=== PATIENT | female | born 1995 | race Caucasian/White ===

== ENCOUNTER 2021-09-13 20:39 | Emergency (ER) | payer BC, SELFPAY ==
[2021-09-13 20:42] VITALS: BP 127/80; PULSE 100; RESP 16; TEMP 36.4; O2SAT 96
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
[2021-09-13 21:12] LABS: Basophils Absolute Auto 0.1 K/mm3 (0.0-0.1); Basophils Percent Auto 0.7 % (0.2-1.2); Eosinophils Absolute Auto 0.1 K/mm3 (0-0.3); Hematocrit 38.3 % (37.0-47.0); Immature Granulocyte Absolute 0.02 K/mm3 (0.00-0.031); Immature Granulocyte Percent A 0.3 % (0-0.5); Lymphocytes Absolute Auto 2.35 K/mm3 (0.9-3.2); Lymphocytes Percent Auto 33.9 % (18.3-44.2); Mean Corpuscular HGB Conc 33.9 g/dl (32-36); Mean Corpuscular Hemoglobin 30.2 pg (26-34); Mean Corpuscular Volume 89.1 fl (80-100); Mean Platelet Volume 10.2 fl (7.4-10.4); Monocytes Absolute Auto 0.6 K/mm3 (0.1-0.6); Monocytes Percent Auto 7.9 % (2.6-8.5); Neutrophils Absolute Auto 3.8 K/mm3 (1.3-6.7); Neutrophils Percent Auto 55.2 % (45.5-73.1); Platelet Count Result 251 k/mm3 (150-375); Red Cell Distribution Width 12.9 % (11.5-14.5); White Blood Count 6.9 K/mm3 (4.5-10.0)
[2021-09-13 21:16] VITALS: BP 105/64; PULSE 90
[2021-09-13 21:17] VITALS: BP 112/72; PULSE 89
[2021-09-13 21:19] VITALS: BP 112/77; PULSE 106
[2021-09-13 21:19] LABS: Add Urine Microscopic? YES; Appearance Urine Cloudy (Clear); Bilirubin Urine Negative (Negative); Blood Urine 3+ (Negative); Color Urine Red (Yellow); Glucose Urine UA Negative (Negative); Ketones Urine Negative (Negative); Leukocyte Esterase Ur Negative LEU/UL (Negative); Nitrate Urine Negative (Negative); Protein Urine 2+ mg/dL (Negative); RBC Urine >75 /hpf (0-2); Specific Grav Ur 1.011 (1.001-1.035); Squamous Epithelial Cell Urine Few /hpf (Few); Urobilinogen Urine Negative mg/dL (<2.0); WBC Urine 0-3 /hpf
[2021-09-13 21:27] LABS: Anion Gap 8 mmol/L (8-16); Blood Urea Nitrogen 8 mg/dL (7-17); Calcium 9.6 mg/dL (8.4-10.2); Carbon Dioxide 27 mmol/L (22-30); Chloride 102 mmol/L (98-107); Estimated CRCL calculation 91 ml/min; Estimated Glomerular Filt Rate > 60; Glucose 101 mg/dL (65-110); Potassium 3.7 mmol/L (3.4-5.0); Sodium 137 mmol/L (137-145)
[2021-09-13 21:43] VITALS: BP 144/98; PULSE 86; RESP 18; O2SAT 99
== END 2021-09-13 21:45 | disposition home or self-care (01) ==
PROVIDERS: Emergency Provider Emergency Medicine; PCP Nurse Practitioner Family
DX: N93.8 Other specified abnormal uterine and vaginal bleeding (principal)
CPT/HCPCS: 36415; 80048; 81001; 81025; 85025; 99283

== ENCOUNTER 2023-02-17 14:32 | Emergency (ER) | payer BC, SELFPAY ==
[2023-02-17] VITALS (17 sets, daily range): BP systolic 94–147; BP diastolic 70–90; PULSE 76–116; RESP 16–21; TEMP 36.7; O2SAT 94–100
--- NOTE | ~2023-02-17 | XR_ITS ---
EXAMINATION: XR chest 2V Exam Date/Time: 02/17/2023 17:00 CDT HISTORY: coughing up blood, hemoptysis Comparison: None available. RESULT: Lines, tubes, and devices: None. Lungs and pleura: Moderate streaky perihilar opacities, diffuse reticulonodular opacities and cuffin g. Cardiomediastinal silhouette: Stable. Other: No acute osseous or upper abdominal finding. IMPRESSION: Pulmonary opacities may represent bronchiolitis, as can be seen with atypical infection, asthma, aspi ration, and small airways disease. Reviewed, dictated and finalized at location K. IMPRESSION: Pulmonary opacities may represent bronchiolitis, as can be seen with atypical i nfection, asthma, aspiration, and small airways disease.
--- NOTE | ~2023-02-17 | CT_ITS ---
EXAMINATION: CT abdomen pelvis w con DATE: 02/17/2023 16:49 INDICATION: Epigastric abdominal pain. Vomiting. TECHNIQUE: Computed tomography (CT) of the abdomen and pelvis was performed with 100 mL Omnipaque 350 intravenous contrast. Automated exposure control and iterative reconstruction technique were employe d. The dose-length product was 883.12 mGy-cm. COMPARISON: None. FINDINGS: The visualized portions of the lung bases demonstrate mild atelectasis. No pleural effusion . The heart size is normal. No pericardial effusion. There is a small sliding hiatal hernia. The live r, gallbladder, spleen, pancreas, adrenal glands, and kidneys are normal. There are no dilated loops of bowel. The appendix is normal. There are no pathologically enlarged lymph nodes. There is no free intraperitoneal fluid. The bones are unremarkable. IMPRESSION: 1. Small sliding hiatal hernia. Reviewed, dictated and finalized at location A.
--- NOTE | 2023-02-17 15:51 | ECG_ITS ---
Measurements Intervals [place] Rate: 85 P: 56 AK: 151 QRS: 24 QRSD: 73 T: 24 QT: 357 QTc: 426 Interpretive Statements SINUS RHYTHM NORMAL ECG NO PREVIOUS ECG AVAILABLE FOR COMPARISON Electronically Signed On 02-18-2023 7:50:43 CDT by Dalton Arroyo D.O.
--- NOTE | 2023-02-17 15:53 | ED.GENADULT ---
HPI - General Adult General Chief complaint: Unspecified Stated complaint: spitting up blood Time Seen by Provider: 02/17/23 14:44 History of Present Illness HPI narrative: Patient is a 27-year-old female with a history of migraines, asthma presenting with multiple complaints. Patient states that she has had a migraine since last . States that it feels typical of her normal migraines. States that she has been taking her Ubrelvy without relief. States that she developed a cough earlier today. States that she was initially just coughing up sputum but then it became blood-tinged. States that she is also been persistently nauseated today. She is complaining of epigastric pain as well that goes somewhat into her chest. She denies numbness or weakness, vision changes, fevers, palpitations, vomiting, diarrhea, dysuria, hematuria, leg swelling. Patient denies exogenous hormone use. Related Data Home Medications Medication Instructions Recorded Confirmed aripiprazole 5 mg tablet (Abilify) 5 mg PO HS 09/13/21 09/13/21 bupropion HCl 100 mg tablet,12 hr 100 mg PO BID 09/13/21 09/13/21 sustained-release Allergies Allergy/AdvReac Type Severity Reaction Status Date / Time hydromorphone [From Dilaudid] Allergy Anxiety Verified 02/17/23 14:39 sumatriptan [From Imitrex] Allergy Anxiety Verified 02/17/23 14:39 Review of Systems Review of Systems: All systems reviewed & are unremarkable except as noted in HPI and below Exam Narrative: GENERAL: Well-appearing, well-nourished, and in no acute distress. HEAD: Normocephalic, atraumatic. EYES: PERRLA and EOMI. ENT: Nares clear, no rhinorrhea or epistaxis. Mucous membranes moist. NECK: Supple. CHEST: Clear to auscultation. No respiratory distress. No wheezing HEART: Regular rate and rhythm. Normal peripheral pulses. ABDOMEN: Soft, + epigastric and left upper quadrant tenderness, mild lower abdominal tenderness, no guarding or rebound EXTREMITIES: Normal range of motion. No edema. SKIN: Warm, dry, no rash. NEURO: No focal deficits. Alert and oriented x3. PSYCH: Normal mood and affect. Course Vital Signs Vital signs: Vital Signs Temperature 98.0 F 02/17/23 14:47 Pulse Rate 116 H 02/17/23 14:47 Respiratory Rate 20 02/17/23 14:47 Blood Pressure 147/86 H 02/17/23 14:47 Pulse Oximetry 99 02/17/23 14:47 Temperature 98.0 F 02/17/23 14:47 Pulse Rate 84 02/17/23 19:26 Respiratory Rate 18 02/17/23 19:26 Blood Pressure 126/83 02/17/23 18:47 Pulse Oximetry 96 02/17/23 19:26 Medical Decision Making MDM Narrative Medical decision making narrative: Patient is a 27-year-old female presenting with headache, nausea, cough. Patient is slightly tachycardic and hypertensive on arrival, vitals are otherwise within normal limits. She is saturating 99% on room air. Chest x-ray shows evidence of peribronchial cuffing and perihilar opacities consistent with asthma. Blood work is unremarkable. Troponin and D-dimer are normal. EKG per my interpretation shows normal sinus rhythm, normal axis and intervals, no ST elevations or depressions. On reevaluation, the patient states that her migraine is improving. Discussed the work-up and my concern for an asthma exacerbation. Patient states that it did feel like her asthma was acting up earlier. We will do a breathing treatment and give her some prednisone. On reevaluation, patient states that she feels significantly improved. States that her headache is gone. States that her breathing feels back to normal. Feel she is safe for outpatient management. We will start her on a prednisone burst for asthma exacerbation. Advised that she follow-up closely with her PCP. Appropriate return precautions given. Patient voiced understanding and is agreeable with plan. Discharged in stable condition. Differential Diagnosis Differential Diagnosis: Asthma exacerbation, URI, pneumonia, PE, migraine Medical Rec
[2023-02-17 16:11] LABS: Appearance Urine Clear (Clear); Bilirubin Urine Negative (Negative); Blood Urine Negative (Negative); Color Urine Yellow (Yellow); Glucose Urine UA Negative (Negative); Ketones Urine Negative (Negative); Leukocyte Esterase Ur Negative LEU/UL (Negative); Nitrate Urine Negative (Negative); Protein Urine Negative (Negative); Specific Grav Ur 1.006 (1.001-1.035); Urobilinogen Urine 0.2 mg/dL (<2.0); pH Urine 5.5 (5.0-9.0)
[2023-02-17 16:16] LABS: Basophils Absolute Auto 0.1 K/mm3 (0.0-0.1); Basophils Percent Auto 0.9 % (0.2-1.2); Eosinophils Absolute Auto 0.2 K/mm3 (0-0.3); Eosinophils Percent Auto 2.1 % (0-4.4); Hematocrit 40.1 % (37.0-47.0); Hemoglobin 13.1 g/dL (12.0-15.0); Immature Granulocyte Absolute 0.05 K/mm3 (0.00-0.031); Immature Granulocyte Percent A 0.7 % (0-0.5); Lymphocytes Absolute Auto 1.73 K/mm3 (0.9-3.2); Lymphocytes Percent Auto 23.1 % (18.3-44.2); Mean Corpuscular HGB Conc 32.7 g/dl (32-36); Mean Corpuscular Hemoglobin 28.5 pg (26-34); Mean Corpuscular Volume 87.4 fl (80-100); Monocytes Absolute Auto 0.7 K/mm3 (0.1-0.6); Monocytes Percent Auto 8.8 % (2.6-8.5); Neutrophils Absolute Auto 4.8 K/mm3 (1.3-6.7); Neutrophils Percent Auto 64.4 % (45.5-73.1); Platelet Count Result 258 k/mm3 (150-375); Red Blood Count 4.59 M/mm3 (4.2-5.4); White Blood Count 7.5 K/mm3 (4.5-10.0)
[2023-02-17 16:20] LABS: Add Urine Microscopic? NO
[2023-02-17 16:23] LABS: Pregnancy On Board Control Positive; Urine Pregnancy Test Negative
[2023-02-17] MEDS: SODIUM CHLORIDE 0.9% IV 1,000 ML 999 ML IV CONT ×2 (16:25→18:06)
[2023-02-17] MEDS: PROCHLORPERAZINE EDISYLATE 10 MG/2 ML VIAL IV PUSH (16:25)
[2023-02-17 16:26] LABS: Lipase 107 U/L (23-300)
[2023-02-17 16:27] LABS: Alanine Aminotransferase 25 U/L (6-35); Albumin Level 4.4 g/dL (3.5-5.1); Alkaline Phosphatase 79 U/L (38-126); Anion Gap 7 mmol/L (8-16); Aspartate Amino Transferase 23 U/L (14-36); Bilirubin,Total 0.3 mg/dL (0.2-1.3); Blood Urea Nitrogen 9 mg/dL (7-17); Calcium 9.3 mg/dL (8.4-10.2); Carbon Dioxide 26 mmol/L (22-30); Chloride 105 mmol/L (98-107); Estimated CRCL calculation 132 ml/min; Estimated Glomerular Filt Rate > 60; Glucose 95 mg/dL (65-110); Sodium 138 mmol/L (137-145)
[2023-02-17 16:33] LABS: D Dimer 0.28 ug/mL (<0.48)
[2023-02-17] MEDS: diphenhydrAMINE HCl INJ 50 MG/ML VIAL 25 MG IV PUSH (16:34)
[2023-02-17 16:38] LABS: Troponin I < 0.012 ng/mL (0.000-0.034)
[2023-02-17 16:44] LABS: Influenza A QL RT-PCR Negative (Negative); Influenza B QL RT-PCR Negative (Negative); SARS-CoV-2 RNA PCR Negative (Negative)
[2023-02-17] MEDS: KETOROLAC 15 MG/ML VIAL (*BKC) IV PUSH (16:52)
[2023-02-17] MEDS: LEVALBUTEROL NEB 1.25 MG/3 ML INHALATION (18:01)
[2023-02-17] MEDS: IPRATROPIUM BR 0.02% INH SOLN 0.5 MG/2.5 ML VIAL INHALATION (18:01)
[2023-02-17] MEDS: predniSONE 20 MG TABLET 40 MG PO (18:06)
[2023-02-17 20:02] LABS: Troponin I < 0.012 ng/mL (0.000-0.034)
== END 2023-02-17 20:01 | disposition home or self-care (01) ==
PROVIDERS: Emergency Provider Emergency Medicine; PCP Nurse Practitioner Family
DX: G43.909 Migraine, unspecified, not intractable, without status migrainosus (principal); J45.901 Unspecified asthma with (acute) exacerbation; Z20.822 Contact with and (suspected) exposure to COVID-19; K44.9 Diaphragmatic hernia without obstruction or gangrene
CPT/HCPCS: 36415; 71046; 74177; 80053; 81003; 81025; 83690; 84484; 85025; 85380; 87636; 93005; 94640; 96361; 96374; 96375; 99284; J0780; J1200; J1885; J7030; J7512; Q9967

== ENCOUNTER → 2023-07-17 10:01 | Outpatient (CLI) | payer BC, SELFPAY ==
--- NOTE | ~2023-07-17 | US_ITS ---
EXAMINATION: US OB limited DATE: 07/17/2023 10:29 INDICATION: abdominal wall defect. TECHNIQUE: Real-time transabdominal ultrasound of the pelvis was performed. COMPARISON: None. FINDINGS: There is an intrauterine gestational sac. There is a single fetus in breech presentation. The c rown rump length measures 8.0 cm, which correlates with an estimated gestational age of 14 weeks and 0 day(s) (+/-) 1 week(s) and 2 day(s) with estimated date of delivery of 01/15/2024. heart motio n is identified measuring 151 beats per minute (bpm) by M-mode Doppler. The placenta is anterior. The amniotic fluid volume is subjectively normal. The ovaries are not visualized. There is no free fluid in the pelvis. IMPRESSION: 1. Normal abdominal wall. 2. Single living intrauterine gestation in breech presentation. Reviewed, dictated and finalized at location E.
== END ==
PROVIDERS: PCP Obstetrics & Gynecology; Visit Provider Obstetrics & Gynecology
DX: O28.3 Abnormal ultrasonic finding on antenatal screening of mother (principal); Z3A.00 Weeks of gestation of pregnancy not specified
CPT/HCPCS: 76815

== ENCOUNTER → 2023-08-27 15:33 | Outpatient (CLI) | payer BC, SELFPAY ==
--- NOTE | ~2023-08-27 | US_ITS ---
EXAMINATION: US OB /maternal detail DATE: 08/27/2023 16:27 INDICATION: anatomic survey. TECHNIQUE: Real-time ultrasound of the pelvis was performed. COMPARISON: Ultrasound 07/17/2023 FINDINGS: There is a single living fetus in vertex presentation. The placenta is anterior. heart rate is 137 beats per minute (bpm). The amniotic fluid volume is subjectively normal. The cervical length is 3.9 cm on transabdominal images, which is normal. The following biometric data were obtained: Biparietal diameter (BPD): 4.5 cm; head circumference (HC): 17.2 cm; abdominal circumference (AC): 14 .1 cm; femur length (FL): 3.2 cm. These measurements are concordant. Estimated weight is 305 g +/- 46 g, which correlates with the 34th percentile when 01/15/24 is u sed as estimated date of delivery. As single measurements, these parameters are each equal to the following estimated gestational ages: BPD: 19 weeks 4 days. HC: 19 weeks 5 days. AC: 19 weeks 3 days. FL: 19 weeks 6 days. estimated gestational age based solely on measurements from this exam is 19 weeks 5 days +/- 1 weeks 3 days. The cerebral ventricles, cerebellum, cisterna magna, nuchal fold, and visualized portions of the spin e are normal. The heart is normal. The lip is not well visualized. The stomach is not well visu alized. The diaphragm, kidneys, and bladder are normal. There are two umbilical arteries to yield a 3 -vessel cord. The cord insertion is normal. IMPRESSION: 1. Single living fetus in vertex presentation. 2. Estimated weight is 305 g +/- 46 g, which correlates with the 34th percentile when 01/15/24 is used as estimated date of delivery. 3. stomach and lip not well visualized. Otherwise normal anatomic survey. Reviewed, dictated and finalized at location E. HING MACHINE OPERATOR IMPRESSION: 1. Single living fetus in vertex presentation. 2. Estimated weight is 305 g +/- 46 g, which correlates with the 34th pe rcentile when 01/15/24 is used as estimated date of delivery. 3. stomach and lip not well visualized. Otherwise normal anatomic s urvey.
== END ==
PROVIDERS: PCP Obstetrics & Gynecology; Visit Provider Obstetrics & Gynecology
DX: Z36.9 Encounter for antenatal screening, unspecified (principal); Z3A.19 19 weeks gestation of pregnancy
CPT/HCPCS: 76805

== ENCOUNTER → 2023-09-25 10:45 | Outpatient (CLI) | payer BC, SELFPAY ==
--- NOTE | ~2023-09-25 | US_ITS ---
EXAMINATION: US OB limited DATE: 09/25/2023 11:56 INDICATION: Incomplete second trimester anatomic survey TECHNIQUE: Real-time ultrasound of the pelvis was performed. The interpreting radiologist was not pre sent for the study. COMPARISON: 08/27/2023 FINDINGS: There is a single living fetus in vertex presentation. The placenta is anterior and 8.7 cm from the internal cervical os. cardiac activity and movement are noted. heart rate is 132 beats per minute (bpm). The amniotic fluid index is subjectively normal. The stomach michi ears normal. The lip is not well evaluated due to positioning. IMPRESSION: 1. Single living fetus in vertex presentation. 2. Normal-appearing stomach. 3. lips/nose not well demonstrated due to position. Reviewed, dictated and finalized at location B. WASHER MACHINE
== END ==
PROVIDERS: PCP Advanced Practice Midwife; Visit Provider Obstetrics & Gynecology
DX: Z36.9 Encounter for antenatal screening, unspecified (principal); Z3A.00 Weeks of gestation of pregnancy not specified
CPT/HCPCS: 76815

== ENCOUNTER → 2023-10-16 08:35 | Outpatient (CLI) | payer BC, SELFPAY ==
--- NOTE | ~2023-10-16 | US_ITS ---
EXAMINATION: US OB follow up DATE: 10/16/2023 09:21 INDICATION: screening. Obesity complicating . TECHNIQUE: Real-time ultrasound of the pelvis was performed. COMPARISON: Ultrasound 09/25/2023 FINDINGS: There is a single living fetus in vertex presentation. The placenta is anterior. heart rate is 150 beats per minute (bpm). The lip is normal. The amniotic fluid volume is subjectively avel l. The following biometric data were obtained: Biparietal diameter (BPD): 7.0 cm; head circumference (HC): 25.0 cm; abdominal circumference (AC): 22 .6 cm; femur length (FL): 4.9 cm. These measurements are discordant with low FL/BPD. Estimated weight is 1008 g +/- 151 g, which correlates with the 36th percentile when 01/15/24 is used as estimated date of delivery. As single measurements, these parameters are each equal to the following estimated gestational ages: BPD: 27 weeks 1 days. HC: 27 weeks 1 days. AC: 27 weeks 0 days. FL: 26 weeks 5 days. estimated gestational age based solely on measurements from this exam is 27 weeks 2 days +/- 1 weeks 6 days. IMPRESSION: 1. Single living fetus in vertex presentation. 2. Estimated weight is 1008 g +/- 151 g, which correlates with the 36th percentile when 4 is used as estimated date of delivery. 3. Discordant biometrics with low FL/BPD. 4. Normal lip. Reviewed, dictated and finalized at location A. OR ADMINISTRATIVE ASSISTANT IMPRESSION: 1. Single living fetus in vertex presentation. 2. Estimated weight is 1008 g +/- 151 g, which correlates with the 36th percentile when 01/15/24 is used as estimated date of delivery. 3. Discordant biometrics with low FL/BPD. 4. Normal lip.
== END ==
PROVIDERS: PCP Advanced Practice Midwife; Visit Provider Obstetrics & Gynecology
DX: O24.419 Gestational diabetes mellitus in pregnancy, unspecified control (principal); O99.210 Obesity complicating pregnancy, unspecified trimester; Z3A.00 Weeks of gestation of pregnancy not specified; Z36.9 Encounter for antenatal screening, unspecified
CPT/HCPCS: 76816

== ENCOUNTER 2025-02-14 01:05 | Day surgery (SDC) | payer BC, SELFPAY ==
[2025-02-01 14:26] VITALS: BMI 32.7
--- OUTSIDE RECORDS SUMMARY | 2025-02-14 01:08 | XMS_ITS | Data Portability ---
Author Organization [facility] Address [address] [place] [address] Assessment Encounter Date Assessment Date Assessment LastModified by Organization Details LastModified Time 05/21/2022 05/21/2022 Annual gynecological exam performed. Patient will come back in a year unless there are new symptoms. Not available 05/21/2022 15:43:19 Plan of Treatment Reminders Order Date Submit Date Provider Last Modified By Organization Details Last Modified Time Details Appointments None recorded. Lab dhea-sulfat e, serum 2021 [facility] (Lab), [address] [place], [address], 17:17:50 hormone panel, serum or plasma 2021 [facility] (Lab), [address] [place], [address], 17:17:52 progesteron e, serum 2021 [facility] (Lab), [address] [place], [address], 17:17:51 prolactin, serum 2021 [facility] (Lab), [address] [place], [address], 17:17:51 shbg (sex hormone-bin ding globulin), serum 2021 [facility] (Lab), [address], [place], [address], 17:17:52 TSH, serum or plasma 2021 [facility] (Lab), [address], [place], [address], 17:17:52 testosteron e free/testos terone total, ratio, serum 2021 [facility] (Lab), [address], [place], [address], 17:17:53 estradiol, serum 2021 [facility] (Lab), [address] [place], [address], 17:17:50 17-hydroxyp rogesterone , QN, serum 2021 [facility] (Lab), [address] [place], [address], 17:17:53 Referral None recorded. Procedures None recorded. Surgeries None recorded. Imaging None recorded. Medication Orders Slynd 4 mg (28) tablet 2021 [id number], [address], [place], [id number], 15:50:10 Patient TargetsNo targets recorded. Patient InstructionsNo instructions recorded. Reason for Referral None Reported. Results Created Date Observation Date Name Description Value Unit Range Abnormal Flag Note LastModifiedBy Organization Detail LastModifiedTime 09/10/20 21 09/10/2021 CBC W/DIF F WBC 7.1 10'3/ uL 3.6-10 .2 Not Available [facility] (Lab) [address], [place], [address], 09/17/2021 16:23:39 09/10/20 21 09/10/2021 CBC W/DIF F RBC 4.50 10'6/ uL (based on docume nted legal sex) 4.10-5 .30 Not Available [facility] (Lab) [address], [place], [address], 09/17/2021 16:23:39 09/10/20 21 09/10/2021 CBC W/DIF F HGB 13.4 g/dL (based on docume nted legal sex) 11.9-1 5.8 Not Available [facility] (Lab) [address] , [place], [address], 09/17/2021 16:23:39 09/10/20 21 09/10/2021 CBC W/DIF F HCT 40.1 % (based on docume nted legal sex) 37.4-4 8.3 Not Available [facility] (Lab) [address] , [place], [address], 09/17/2021 16:23:39 09/10/20 21 09/10/2021 CBC W/DIF F MCV 89.0 fL 82.0-9 9.0 Not Available [facility] (Lab) [address], [place], [address], 09/17/2021 16:23:39 09/10/20 21 09/10/2021 CBC W/DIF F MCH 30.0 pg 27.0-3 3.0 Not Available [facility] (Lab) [address] , [place], [address], 09/17/2021 16:23:39 09/10/20 21 09/10/2021 CBC W/DIF F MCHC 33.0 g/dL 32.0-3 6.0 Not Available [facility] (Lab) [address] , [place], [address], 09/17/2021 16:23:39 09/10/20 21 09/10/2021 CBC W/DIF F RDW 13.0 % 11.0-1 5.0 Not Available [facility] (Lab) [address], [place], [address], 09/17/2021 16:23:39 09/10/20 21 09/10/2021 CBC W/DIF F plt 266 10'3/ uL 150-45 0 Not Available [facility] (Lab) [address], [place], [address], 09/17/2021 16:23:39 09/10/20 21 09/10/2021 CBC W/DIF F MPV 10.9 fL 9.8-12 .7 Not Available [facility] (Lab) [address], [place], [address], 09/17/2021 16:23:39 09/10/20 21 09/10/2021 CBC W/DIF F NRBC's 0.00 % 0 Not Available [facility] (Lab) [address], [place], [address], 09/17/2021 16:23:39 09/10/20 21 09/10/2021 CBC W/DIF F absolute NRBCs 0.0 10'3/ uL 0 Not Available [facility] (Lab) [address], [place], [address], 09/17/2021 16:23:39 09/10/20 21 09/10/2021 CBC W/DIF F neutrophils 64.0 % 37.0-7 2.0 Not Available [facility] (Lab) [address], [place], [address], 09/17/2021 16:23:39 09/10/20 21 09/10/2021 CBC W/DIF F lymphocytes 25.0 % 16.0-4 8.0 Not Available [facility] (Lab) [address], [place], [address], 09/17/2021 16:23:39 09/10/20 21 09/10/2021 CBC W/DIF F monocytes 8.0 % 4.0-14 .0 Not Available [facility] (Lab) [address], [place], [address], 09/17/2021 16:23:39 09/10/20 21 09/10/2021 CBC W/DIF F eosinophils 2.0 % 0.0-9. 0 Not Available [facility] (Lab) [address], [place], [address], 09/17/2021 16:23:39 09/10/20 21 09/10/2021 CBC W/DIF F basophils 1.0 % 0.0-2. 0 Not Available [facility] (Lab) [address], [place], [address], 09/17/2021 16:23:39 09/10/20 21 09/10/2021 CBC W/DIF F immature granulocytes 0.0 % no define d refere nce range Not Available [facility] (Lab) [address], [place], [address], 09/17/2021 16:23:39 09/10/20 21 09/10/2021 CBC W/DIF F absolute neutrophils 4.6 10'3/ uL 1.1-6. 0 Not Available [facility] (Lab) [address], [place], [address], 09/17/2021 16:23:39 09/10/20 21 09/10/2021 CBC W/DIF F absolute lymphocytes 1.7 10'3/ uL 0.7-3. 4 Not Available [facility] (Lab) [address], [place], [address], 09/17/2021 16:23:39 09/10/20 21 09/10/2021 CBC W/DIF F absolute monocytes 0.5 10'3/ uL 0.3-1. 0 Not Available [facility] (Lab) [address] [place], [address], 09/17/2021 16:23:39 09/10/20 21 09/10/2021 CBC W/DIF F absolute eosinophils 0.1 10'3/ uL 0.0-0. 6 Not Available [facility] (Lab) [address], [place], [address], 09/17/2021 16:23:39 09/10/20 21 09/10/2021 CBC W/DIF F absolute basophils 0.0 10'3/ uL 0.0-0. 1 Not Available [facility] (Lab) [address], [place], [address], 09/17/2021 16:23:39 09/10/20 21 09/10/2021 CBC W/DIF F absolute immature granulocytes 0.00 10'3/ uL 0.00-0 .10 09/11 12:34 AM: P indic ates parti al resul ts on a panel have been relea sed. Addit ional resul ts will follo w. 09/11 12:34 AM: This resul t has been final verif ied. No addit ional or richards ed resul ts are expec nickolas. Not Available [facility] (Lab) [address], [place], [address], 09/17/2021 16:23:39 09/10/20 21 09/10/2021 URIC ACID uric acid 6.5 mg/dL 2.3-6. 6 Not Available [facility] (Lab) [address], [place], [address], 09/17/2021 16:23:39 09/10/20 21 09/10/2021 CMP(C OMPRE HENSI VE METAB OLIC PANEL ) sodium 141 mmol/ L 133-14 6 Not Available [facility] (Lab) [address], [place], [address], 09/17/2021 16:23:40 09/10/20 21 09/10/2021 CMP(C OMPRE HENSI VE METAB OLIC PANEL ) potassium 4.1 mmol/ L 3.5-5. 1 Not Available [facility] (Lab) [address], [place], [address], 09/17/2021 16:23:40 09/10/20 21 09/10/2021 CMP(C OMPRE HENSI VE METAB OLIC PANEL ) chloride 104 mmol/ L 98-107 Not Available [facility] (Lab) [address], [place], [address], 09/17/2021 16:23:40 09/10/20 21 09/10/2021 CMP(C OMPRE HENSI VE METAB OLIC PANEL ) carbon dioxide 27 mmol/ L 21-31 Not Available [facility] (Lab) [address], [place], [address], 09/17/2021 16:23:40 09/10/20 21 09/10/2021 CMP(C OMPRE HENSI VE METAB OLIC PANEL ) anion gap 10 mmol/ L 4-13 Not Available [facility] (Lab) [address], [place], [address], 09/17/2021 16:23:40 09/10/20 21 09/10/2021 CMP(C OMPRE HENSI VE METAB OLIC PANEL ) blood urea nitrogen 10 mg/dL 7-25 Not Available [facility] (Lab) [address] [place], [address], 09/17/2021 16:23:40 09/10/20 21 09/10/2021 CMP(C OMPRE HENSI VE METAB OLIC PANEL ) creatinine 0.85 mg/dL 0.60-1 .30 Not Available [facility] (Lab) [address], [place], [address], 09/17/2021 16:23:40 09/10/20 21 09/10/2021 CMP(C OMPRE HENSI VE METAB OLIC PANEL ) egfrcr (CKD-epi 2020) >90 mL/mi n/1.7 3_m2 >=60 Not Available [facility] (Lab) [address], [place], [address], 09/17/2021 16:23:40 09/10/20 21 09/10/2021 CMP(C OMPRE HENSI VE METAB OLIC PANEL ) calcium 10.0 mg/dL 8.3-10 .5 Not Available [facility] (Lab) [address], [place], [address], 09/17/2021 16:23:40 09/10/20 21 09/10/2021 CMP(C OMPRE HENSI VE METAB OLIC PANEL ) glucose 91 mg/dL 70-100 Not Available [facility] (Lab) [address], [place], [address], 09/17/2021 16:23:40 09/10/20 21 09/10/2021 CMP(C OMPRE HENSI VE METAB OLIC PANEL ) protein, total 7.3 g/dL 6.4-8. 3 Not Available [facility] (Lab) [address], [place], [address], 09/17/2021 16:23:40 09/10/20 21 09/10/2021 CMP(C OMPRE HENSI VE METAB OLIC PANEL ) albumin 4.9 g/dL 3.5-5. 0 Not Available [facility] (Lab) [address] [place], [address], 09/17/2021 16:23:40 09/10/20 21 09/10/2021 CMP(C OMPRE HENSI VE METAB OLIC PANEL ) ALT 14 units /L 9-43 Not Available [facility] (Lab) [address], [place], [address], 09/17/2021 16:23:40 09/10/20 21 09/10/2021 CMP(C OMPRE HENSI VE METAB OLIC PANEL ) alkaline phosphatase 64 units /L 34-104 Not Available [facility] (Lab) [address], [place], [address], 09/17/2021 16:23:40 09/10/20 21 09/10/2021 CMP(C OMPRE HENSI VE METAB OLIC PANEL ) AST 15 units /L 13-39 Not Available [facility] (Lab) [address], [place], [address], 09/17/2021 16:23:40 09/10/20 21 09/10/2021 CMP(C OMPRE HENSI VE METAB OLIC PANEL ) bilirubin, total 0.5 mg/dL 0.2-1. 2 Not Available [facility] (Lab) [address], [place], [address], 09/17/2021 16:23:40 09/10/20 21 09/10/2021 FREE T3 T3, free 4.0 pg/mL 2.5-3. 9 high Not Available [facility] (Lab) [address] [place], [address], 09/17/2021 16:23:40 09/10/20 21 09/10/2021 DHEA SULFA TE DHEA-sulfate 388 ug/dL Femal e Range s Age(y ) Range (ug/d L) 10-15 34-28 0 15-20 65-36 8 20-25 148-4 07 25-35 99-34 0 35-45 61-33 7 45-55 35-25 6 55-65 19-20 5 65-75 9-246 > 75 12-15 4 Not Available [facility] (Lab) [address], [place], [address], 09/17/2021 16:23:41 09/10/20 21 09/10/2021 TSH, REFLE X FREE T4 TSH 1.28 uIU/m L 0.30-5 .33 Not Available [facility] (Lab) [address], [place], [address], 09/17/2021 16:23:41 09/10/20 21 09/10/2021 HUMAN SEX HORMO NE ANNIE NG GLOBU MILADIS sex hormone binding globulin 60.3 nmole s/L 18.2-1 35.5 Not Available [facility] (Lab) [address], [place], [address], 09/17/2021 16:23:42 09/10/20 21 09/10/2021 PROGE STERO NE progesterone 0.20 NG/mL This assay was perfo rmed using [employer] ratio n reage nts and test kits. Value s obtai janna with other assay metho ds or kits canno t be used inter [facility] . Femal e Proge stero ne Range s: Folli cular phase 0.06- 0.89 ng/mL Ovula tion phase 0.12- 12.00 ng/mL Lutea l phase 1.83- 23.90 ng/mL Postm enopa usal< 0.05- 0.13 ng/mL Healt hy Pregn ant Women 1st Trime ster1 1.0-4 4.30 2nd Trime ster2 5.40- 83.30 3rd Trime ster5 8.70- 214.0 0 Not Available [facility] (Lab) [address], [place], [address], 09/17/2021 16:23:42 09/10/20 21 09/10/2021 PROLA CTIN prolactin, total 9.04 NG/mL 4.79-2 3.30 This assay was perfo rmed using [employer] ratio n reage nts and test kits. Value s obtai janna with other assay metho ds or kits canno t be used inter [facility] . Not Available [facility] (Lab) [address], [place], [address], 09/17/2021 16:23:42 09/10/20 21 09/10/2021 T4 FREE T4, free 0.72 NG/dL 0.60-1 .40 Not Available [facility] (Lab) [address] [place], [address], 09/17/2021 16:23:43 09/10/20 21 09/10/2021 LH (LUTE NIZIN G HORMO NE) LH 9.4 mIU/m L This assay was perfo rmed using [employer] ratio n reage nts and test kits. Value s obtai janna with other assay metho ds or kits canno t be used inter [facility] . Femal es Mid-F ollic ular: 2.4-1 2.6 mIU/m L Mid-C ycle: 14.0- 95.6 mIU/m L Mid-L uteal : 1.0-1 1.4 mIU/m L Postm enopa use: 7.7-5 8.5 mIU/m L Not Available [facility] (Lab) [address], [place], [address], 09/17/2021 16:23:43 09/10/20 21 09/10/2021 FSH FSH 10.4 mIU/m L This assay was perfo rmed using [employer] ratio n reage nts and test kits. Value s obtai janna with other assay metho ds or kits canno t be used [facility] . Femal es Folli cular : 3.5-1 2.5 mIU/m L Ovula tion: 4.7-2 1.5 mIU/m L Lutea l: 1.7-7 .7 mIU/m L Postm enopa use: 25.8- 134.8 mIU/m L Not Available [facility] (Lab) [address], [place], [address], 09/17/2021 16:23:44 09/10/20 21 09/10/2021 ESTRA DIOL estradiol <5.0 pg/mL This assay was perfo rmed using [employer] ratio n reage nts and test kits. Value s obtai janna with other assay metho ds or kits canno t be used [facility] . Femal e Estra diol Range s: Folli cular phase 12.4- 233 pg/mL Ovula tion phase 41.0- 398 pg/mL Lutea l phase 22.3- 341 pg/mL Postm enopa usal< 5-138 pg/mL Healt hy Pregn ant Women 1st Trime ster1 54-32 43 pg/mL 2nd Trime ster1 561-2 1280 pg/mL 3rd Trime ster8 525-> 48059 pg/mL Not Available [facility] (Lab) [address], [place], [address], 09/17/2021 16:23:44 09/10/20 21 09/10/2021 HEMOG LOBIN A1C hemoglobin A1C 5.1 % 0-5.6 The Ameri can Diabe tony [employer] iatio n recom mends that a prima ry goal of thera py shoul d be a HBA1C of < 7% and that physi cians shoul d reeva luate the treat ment regim en in patie nts with HBA1C value s consi stent ly > 8%. <5.7% Neris l 5.7 - 6.4% Incre ased risk for diabe tony >=6.5 % Diagn ostic of diabe tony <7.0% Goal of thera py >8.0% Actio n sugge sted Not Available [facility] (Lab) [address], [place], [address], 09/17/2021 16:23:45 09/10/20 21 09/10/2021 TESTO STERO NE, FREE( DIALY SIS) AND TOTAL (LC/M S/MS) testosterone , total 17 NG/dL 2-45 For addit ional infor mario lynn e refer to http: //[facility].que stdia gnost ics.c om/fa q/Tot alTes liana Velasquez [employer] [facility] (This link is being provi ded for infor jose jo/ educa marques l purpo ses only. ) This test was jennifer castellanos and its reji tical perfo rmanc e aquilino cteri stics have been deter mined by [facility]. It has not been clear ed or appro leana by the FDA. This assay has been valid ated pursu ant to the CLIA regul ation s and is used for clini bro purpo ses. Not Available [facility] (Lab) [address] [place], [address], 09/17/2021 16:23:45 09/10/20 21 09/10/2021 TESTO STERO NE, FREE( DIALY SIS) AND TOTAL (LC/M S/MS) testosterone , free 1.6 pg/mL 0.1-6. 4 This test was devel oped and its reji tical perfo rmanc e aquilino cteri stics have been deter mined by [facility]. It has not been clear ed or appro leana by the FDA. This assay has been valid ated pursu ant to the CLIA regul ation s and is used for clini bro purpo ses. Perfo rming Organ izati on Infor matio n: Site ID: [id number] Name: [facility]-Armaan kevan Daveen lydia Addre ss: [id number] [place] [address] Direc tor: Lin bolivar M.D. Not Available [facility] (Lab) [address], [place], [address], 09/17/2021 16:23:45 09/10/20 21 09/10/2021 17-OH PROGE STERO NE 17-hydroxypr ogesterone, lc/MS/MS 16 NG/dL Adult Femal e Refer ence Range s for 17-Hy droxy proge stero ne: Pre-M enopa usal Mid Folli cular : 23-10 2 ng/dL Pre-M enopa usal Surge : 67-34 9 ng/dL Pre-M enopa usal Mid Lutea l: 139-4 31 ng/dL Postm enopa usal Phase : < or = 45 ng/dL Pregn jeremiah: First Trime ster: 78-45 7 ng/dL Secon d Trime ster: 90-35 7 ng/dL Third Trime ster: 144-5 78 ng/dL This test was devel oped and its reji tical perfo rmanc e aquilino cteri stics have been deter mined by [facility] [place] [facility] . It has not been clear ed or appro leana by FDA. This assay has been valid ated pursu ant to the CLIA regul ation s and is used for clini bro purpo ses. Perfo rming Organ izati on Infor matio n: Site ID: [id number] Name: [facility]/Armaan hols [facility] [place] , Addre ss: [id number] [place] [address] Direc tor: Linda pink MD,Ph D,KRISSY Not Available [facility] (Lab) [address], [place], [address], 09/17/2021 16:23:46 11/07/19 22 11/07/2021 DHEA SULFA TE DHEA-sulfate 275 ug/dL Femal e Range s Age(y ) Range (ug/d L) 10-15 34-28 0 15-20 65-36 8 20-25 148-4 07 25-35 99-34 0 35-45 61-33 7 45-55 35-25 6 55-65 19-20 5 65-75 9-246 > 75 12-15 4 Not Available [facility] (Lab) [address], [place], [address], 11/11/2021 17:17:50 11/07/19 22 11/07/2021 ESTRA DIOL estradiol 44.9 pg/mL This assay was perfo rmed using [employer] ratio n reage nts and test kits. Value s obtai janna with other assay metho ds or kits canno t be used inter [facility] . Femal e Estra diol Range s: Folli cular phase 12.4- 233 pg/mL Ovula tion phase 41.0- 398 pg/mL Lutea l phase 22.3- 341 pg/mL Postm enopa usal< 5-138 pg/mL Healt hy Pregn ant Women 1st Trime ster1 54-32 43 pg/mL 2nd Trime ster1 561-2 1280 pg/mL 3rd Trime ster8 525-> 47223 pg/mL Not Available [facility] (Lab) [address], [place], [address], 11/11/2021 17:17:50 11/07/19 22 11/07/2021 PROGE STERO NE progesterone 0.25 NG/mL This assay was perfo rmed using [employer] [facility] ratio n reage nts and test kits. Value s obtai janna with other assay metho ds or kits canno t be used [facility] . Femal e Proge stero ne Range s: Folli cular phase 0.06- 0.89 ng/mL Ovula tion phase 0.12- 12.00 ng/mL Lutea l phase 1.83- 23.90 ng/mL Postm enopa usal< 0.05- 0.13 ng/mL Healt hy Pregn ant Women 1st Trime ster1 1.0-4 4.30 2nd Trime ster2 5.40- 83.30 3rd Trime ster5 8.70- 214.0 0 Not Available [facility] (Lab) [address], [place], [address], 11/11/2021 17:17:51 11/07/19 22 11/07/2021 PROLA CTIN prolactin, total 4.12 NG/mL 4.79-2 3.30 low This assay was perfo rmed using [employer] ratio n reage nts and test kits. Value s obtai janna with other assay metho ds or kits canno t be used [facility] . Not Available [facility] (Lab) [address] [place], [address], 11/11/2021 17:17:51 11/07/19 22 11/07/2021 FSH, LH, ESTRA DIOL estradiol 44.9 pg/mL This assay was perfo rmed using [employer] [facility] ratio n reage nts and test kits. Value s obtai janna with other assay metho ds or kits canno t be used [facility] . Femal e Estra diol Range s: Folli cular phase 12.4- 233 pg/mL Ovula tion phase 41.0- 398 pg/mL Lutea l phase 22.3- 341 pg/mL Postm enopa usal< 5-138 pg/mL Healt hy Pregn ant Women 1st Trime ster1 54-32 43 pg/mL 2nd Trime ster1 561-2 1280 pg/mL 3rd Trime ster8 525-> 13596 pg/mL This assay was perfo rmed using [facility] [employer] [facility] [facility] [employer] ratio n reage nts and test kits. Value s obtai janna with other assay metho ds or kits canno t be used [facility] . Femal e Estra diol Range s: Folli cular phase 12.4- 233 pg/mL Ovula tion phase 41.0- 398 pg/mL Lutea l phase 22.3- 341 pg/mL Postm enopa usal< 5-138 pg/mL Healt hy Pregn ant Women 1st Trime ster1 54-32 43 pg/mL 2nd Trime ster1 561-2 1280 pg/mL 3rd Trime ster8 525-> 86783 pg/mL Not Available [facility] (Lab) [address] [place], [address], 11/11/2021 17:17:51 11/07/19 22 11/07/2021 FSH, LH, ESTRA DIOL FSH 10.6 mIU/m L This assay was perfo rmed using [facility] [employer] [facility] [facility] [employer] ratio n reage nts and test kits. Value s obtai janna with other assay metho ds or kits canno t be used [facility] . Femal es Folli cular : 3.5-1 2.5 mIU/m L Ovula tion: 4.7-2 1.5 mIU/m L Lutea l: 1.7-7 .7 mIU/m L Postm enopa use: 25.8- 134.8 mIU/m L Not Available [facility] (Lab) [address] [place], [address], 11/11/2021 17:17:51 11/07/19 22 11/07/2021 FSH, LH, ESTRA DIOL LH 8.6 mIU/m L This assay was perfo rmed using [employer] [facility] ratio n reage nts and test kits. Value s obtai janna with other assay metho ds or kits canno t be used inter [facility] . Femal es Mid-F ollic ular: 2.4-1 2.6 mIU/m L Mid-C ycle: 14.0- 95.6 mIU/m L Mid-L uteal : 1.0-1 1.4 mIU/m L Postm enopa use: 7.7-5 8.5 mIU/m L Not Available [facility] (Lab) [address], [place], [address], 11/11/2021 17:17:51 11/07/19 22 11/07/2021 TSH, REFLE X FREE T4 TSH 1.12 uIU/m L 0.30-5 .33 Not Available [facility] (Lab) [address] [place], [address], 11/11/2021 17:17:52 11/07/19 22 11/07/2021 HUMAN SEX HORMO NE ANNIE NG GLOBU MILADIS sex hormone binding globulin 96.1 nmole s/L 18.2-1 35.5 Not Available [facility] (Lab) [address] [place], [address], 11/11/2021 17:17:52 11/07/19 22 11/07/2021 17-OH PROGE STERO NE 17-hydroxypr ogesterone, lc/MS/MS 29 NG/dL Adult Femal e Refer ence Range s for 17-Hy droxy proge stero ne: Pre-M enopa usal Mid Folli cular : 23-10 2 ng/dL Pre-M enopa usal Surge : 67-34 9 ng/dL Pre-M enopa usal Mid Lutea l: 139-4 31 ng/dL Postm enopa usal Phase : < or = 45 ng/dL Pregn jeremiah: First Trime ster: 78-45 7 ng/dL Secon d Trime ster: 90-35 7 ng/dL Third Trime ster: 144-5 78 ng/dL This test was devel oped and its reji tical perfo rmanc e aquilino cteri stics have been deter mined by [facility] [place] . It has not been clear ed or appro leana by FDA. This assay has been valid ated pursu ant to the CLIA regul ation s and is used for clini bro purpo ses. Perfo rming Organ izati on Norbertor aracelijuanjo seo: Site ID: [id number] Name: [facility]/Armaan kevan [facility] [place] , Addre ss: [id number] [place] [id number] Direc tor: Linda pink MD,Ph D,KRISSY Not Available [facility] (Lab) [address] [place], [address], 11/11/2021 17:17:53 11/07/19 22 11/07/2021 TESTO STERO NE, FREE( DIALY SIS) AND TOTAL (LC/M S/MS) testosterone , total 43 NG/dL 2-45 For addit ional mario lubin e refer to http: //[facility].que stdia gnost ics.c om/fa q/Tot alTes liana Velasquez [facility] (This link is being provi ded for infor aracelijuanjo jo/ educsandra lin l purpo ses only. ) This test was devel oped and its reji tical perfo rmanc e aquilino cteri stics have been deter mined by [facility]. It has not been clear ed or appro leana by the FDA. This assay has been valid ated pursu ant to the CLIA regul ation s and is used for clini bro purpo ses. Not Available [facility] (Lab) [address] [facility], [place], [address], 11/11/2021 17:17:53 11/07/19 22 11/07/2021 TESTO STERO NE, FREE( DIALY SIS) AND TOTAL (LC/M S/MS) testosterone , free 2.5 pg/mL 0.1-6. 4 This test was devel oped and its reji tical perfo rmanc e aquilino cteri stics have been deter mined by [facility]. It has not been clear ed or appro leana by the FDA. This assay has been valid ated pursu ant to the CLIA regul ation s and is used for clini bro purpo ses. Perfo rming Organ izati on Infor matio n: Site ID: [id number] Name: [facility]Armaan kevan Schmidt cia Addre ss: [address] [place] [address] Direc tor: Lin bolivar M.D. Not Available [facility] (Lab) [address] [facility], [place], [address], 11/11/2021 17:17:53 05/21/20 22 05/21/2022 IMAGE GUIDE D PAP, REFLE X HPV IF ASCUS ONLY image guided Pap, reflex HPV ASCUS only SEE RESULT S BELOW CASE REPOR T: Cytol ogy Gynec ologi bro Repor t Case: [id number] Autho sae rbito Provi kia: Isael Houston Colle cted: 05/21 1650 BOX ANNEALER Order ing Locat ion: [place] [facility] Recei leana: 05/22 1241 First Scree n: Rosa Padilla ret, CT Rescr een: Marlys Pryor Speci men: Scree amado Pap - Image d, Cervi x STATE MENT OF ADEQU ACY: Satis facto ry for evalu ation Trans forma tion zone compo nent absen t The absen ce of an endoc ervic al compo nent was confi rmed by an addit ional scree ner. FINAL DIAGN OSIS: Negat ivette for Intra epith elial Cali seo or Betsy lawrence (NIL) . Elect chantale paredes d by Marlys Pryor on 2021 at 12:46 PM ----- ----- ----- ----- ----- ----- ----- ----- ----- ----- ----- ----- ----- ----- ----- ----- ----- ---- COMME NT: Note: This speci men was revie wed by a Cytot echno logis t and/o r Patho logis t (as indic ated in this repor t) after evalu ation using the Thinp rep Imagi ng Syste m. CLINI BRO INFOR MATIO N: Menst rual Statu s: LMP (if appli cable ): Clini bro Histo ry/Pr eviou s Pap: Type of Neopl eyal (if appli cable ): Signi fican t Clini bro Findi ngs: Other Histo ry: Hormo berenice (if appli cable ): PAP EDUCA MARQUES L NOTE: The Pap Test is a scree amado test with an inher ent false negat ivette rate. Liqui d-bas ed sampl ing may decre ase, but will not elimi tay, false negat ivette resul ts. A negat ivette resul t does not precl ude the prese nce and/o r devel opmen t of disea se, since the prese nce of abnor mal cells in the sampl e depen ds on the locat ion of the lesio n and sampl ing techn ique. Burt nued regul ar scree amado is the best metho d of cance r preve ntion . If repor nickolas cytol ogic findi ng do not corre late with physi bro and/o r histo rical findi ngs, furth er inves tigat ion is recom kika d, as clinnarcisa bennett nted. Not Available [facility] [address] [place], [address], 05/27/2022 13:52:00 05/21/20 22 05/21/2022 TRICH OMONA S VAGIN MARVIN (RRNA ) trichomonas vaginalis ribosomal RNA (rrna) Negati ve negati ve Not Available [facility] [address], [place], [address], 05/27/2022 13:52:00 05/21/20 22 05/21/2022 CT/GC (BELLA) , THINP REP VIAL chlamydia trachomatis, PCR Negati ve negati ve Not Available [facility] [address], [place], [address], 05/27/2022 13:52:01 05/21/20 22 05/21/2022 CT/GC (BELLA) , THINP REP VIAL neisseria gonorrhoeae, PCR Negati ve negati ve Not Available [facility] [address], [place], [address], 05/27/2022 13:52:01 09/17/20 21 09/17/2021 US, pelvi s No observ ation record ed. [email or web address] [place]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 16:11:09 OBGyn Episode No OBEpisode recorded.
--- OUTSIDE RECORDS SUMMARY | 2025-02-14 01:08 | XMS_ITS | Clinical Summary ---
Author Organization [facility] Address [address] [place] [address] Care Team Providers Care Dial Buffer Name Role Phone Mayte Koch [facility] Primary Care Provider + [phone] Allergies Active Allergy Reactions Criticality Noted Date Comments Hydromorphone Anxiety,Hallucinations Medium 05/21/2023 Sumatriptan Anxiety Medium 05/21/2023 Medications sertraline (ZOLOFT) 100 MG tablet Take 1 tablet (100 mg total) by mouth daily. Active famotidine (PEPCID) 20 MG tablet Take 1 tablet (20 mg total) by mouth 2 (two) times daily. Active vitamin, low iron, ( VITAMIN WITH IRON) 27-0.8 MG tablet Take 1 tablet by mouth daily. Active ferrous sulfate, 65 mg elemental, 325 (65 FE) MG tablet Take 1 tablet (325 mg total) by mouth every other day. Active Active Problems Problem Noted Date Diagnosed Date ([facility]) 01/05/2024 Gestational diabetes ([facility]) 12/06/2023 Family History Medical History Relation Comments Other Father Cancer Maternal Grandfather Cancer Maternal Grandmother Diabetes Maternal Grandmother Heart Maternal Grandmother Hypertension Maternal Grandmother Psychiatry Mother Cancer Paternal Grandfather Cancer Paternal Grandmother Relation Status Comments Father Maternal Grandfather Maternal Grandmother Mother Paternal Grandfather Paternal Grandmother Social History Tobacco Use Types Packs/Day Years Used Date Smoking Tobacco: Never Smokeless Tobacco: Never Tobacco Cessation:Counseling Given: Not Answered Alcohol Use Standard Drinks/Week Comments Not Currently 0 (1 standard drink = 0.6 oz pur e alcohol) [facility] Utilities Answer Date Recorded In the past 12 months has th e electric, gas, oil, or water company threatened to shut off services in your home? No 01/05/2024 Humiliation, Afraid, Rape, and Kick questionnair e Answer Date Recorded Within the last year, have y ou been afraid of your partner or ex-partner? No 01/05/2024 Within the last year, have y ou been humiliated or emotionally abused in other ways by your partner or ex-partner? No Within the last year, have y ou been kicked, hit, slapped, or otherwise physically hurt by your partner or ex-partner? No 01/05/2024 Within the last year, have y ou been raped or forced to have any kind of sexual activity by your partner or ex-partner? No 01/05/2024 Social Connection and Isolat ion Panel [NHANES] Answer Date Recorded In a typical week, how many times do you talk on the phone with family, friends, or neighbors? More than three times a week 01/05/2024 How often do you get togethe r with friends or relatives? Twice a week 01/05/2024 How often do you attend [facility] or sabianist services? Patient declined 01/05/2024 Do you belong to any clubs o r organizations such as anglican groups, unions, fraternal or athletic groups, or school groups? Patient declined 01/05/2024 How often do you attend meet ings of the clubs or organizations you belong to? Patient declined 01/05/2024 Are you , , di vorced, , never , or living with a partner? 01/05/2024 AUDIT-C Answer Date Recorded Q1: How often do you have a drink containing alcohol? Never 01/05/2024 Q2: How many drinks containi ng alcohol do you have on a typical day when you are drinking? Patient does not drink Q3: How often do you have si x or more drinks on one occasion? Never 01/05/2024 Overall Financial Resource Strain (CARDIA) Answe r Date Recorded How hard is it for you to pa y for the very basics like food, housing, medical care, and heating? Not hard at all 01/05/2024 [facility] [place] of Occupat ional Health - Occupational Stress Questionnaire Answer Date Recorded Do you feel stress - tense, restless, nervous, or anxious, or unable to sleep at night because your mind is troubled all the time - these days? To some extent 01/05/2024 Exercise Vital Sign Answer Date Recorde d On average, how many days pe r week do you engage in moderate to strenuous exercise (like a brisk walk)? Patient declined On average, how many minutes do you engage in exercise at this level? Patient declined 01/05/2024 Hunger Vital Sign Answer Date Recorded Within the past 12 months, y ou worried that your food would run out before you got the money to buy more. Never true 01/05/20 24 Within the past 12 months, t he food you bought just didn't last and you didn't have money to get more. Never true 01/05/2024 PRAPARE - Transportation Answer Date Re corded In the past 12 months, has l ack of transportation kept you from medical appointments or from getting medications? No 12/17 In the past 12 months, has l ack of transportation kept you from meetings, work, or from getting things needed for daily living? No 01/05/2024 Housing Stability Vital Sign Answer Cyrus e Recorded In the last 12 months, was t here a time when you were not able to pay the mortgage or rent on time? No 01/05/2024 In the last 12 months, how many places have you lived? 1 01/05/2024 In the last 12 months, was t here a time when you did not have a steady place to sleep or slept in a senior care (including now)? No 01/05/2024 Comments No Sex and Gender Information Value Date Recorded Sex Assigned at Not on file Legal Sex Female 5:41 PM CDT Gender Identity Not on file Sexual Orientation Not on file Last Filed Vital Signs Vital Sign Reading Time Taken Comments Blood Pressure 110/60 01/10/2024 9:15 AM CDT Pulse 78 01/10/2024 9:15 AM CDT Temperature 36.7 C (98.1 F) 01/10/2024 9:15 AM CDT Respiratory Rate 18 01/07/2024 3:00 AM CDT Oxygen Saturation 98% 01/10/2024 9:15 AM CDT Inhaled Oxygen Concentration - - Weight 91.6 kg (202 lb) 01/05/2024 4:51 PM CDT Height 154.9 cm (5' 1 ) 01/05/2024 4:51 PM CDT Body Mass Index 38.17 01/05/2024 4:51 PM CDT Plan of Treatment Health Maintenance Due Date Last Done Comments Cervical Cancer Screening Pa p Smear (Age 21 to 29) Every 3 Years 1997 Cervical Cancer Screening 1997 Annual Physical 2000 Hepatitis B Vaccines (1 of 3 - 19+ 3-dose series) 2016 COVID-19 Vaccine (2023-2 5 season) 2024 DTaP, Tdap and Td Vaccines ( 2 - Td or Tdap) 11/13/2033 11/13/2023 Hepatitis C Completed 06/10/2023 HPV Vaccines Aged Out No longer eligi ble based on patient's age to complete this topic Meningococcal B Vaccine Aged Out No l onger eligible based on patient's age to complete this topic Meningococcal Vaccine Aged Out No stanley kenneth eligible based on patient's age to complete this topic Pneumococcal Vaccine: Pediat rics (0 to 5 Years) and At-Risk Patients (6 to 49 Years) Aged Out No longer eligi ble based on patient's age to complete this topic RSV Immunizations Under 20 Months Aged Out No longer eligible based on patient's age to complete this topic Procedures Procedure Name Priority Date/Time Associated Diagnosis Comments HEPATITIS C ANTIBODY Routine 06/10/2023 from Last 3 Months or Most Recently Relevant to Health Maintenance Results * HEPATITIS C ANTIBODY (06/10/2023) HEPATITIS C AB non-reacti ve us Default History Genericprovider LABORATORY Final Result from Last 3 Months or Most Recently Relevant to Health Maintenance Insurance [facility] Advance Directives * Full Code (Latest Code Status on File) Date Activated Date Inactivated Comments 01/05/2024 5:10 PM 01/07/2024 3:27 PM * Full Code Date Activated Date Inactivated Comments 01/05/2024 12:14 PM 01/05/2024 2:14 PM * Full Code Date Activated Date Inactivated Comments 12/31/2023 7:57 AM 12/31/2023 10:13 AM * Full Code Date Activated Date Inactivated Comments 12/25/2023 11:06 AM 12/25/2023 1:34 PM * Full Code Date Activated Date Inactivated Comments 12/19/2023 5:57 PM 12/19/2023 11:51 PM Care Teams Dial Buffer Relationship Specialty Start Date End Date Mayte Koch CNM [address] [place] [address] PCP - General CERTIFIED NURSE INTERNAL REVENUE AGENT 11/16/23
[2025-02-14 11:11] VITALS: BP 118/63; PULSE 72; RESP 18; TEMP 36.3; O2SAT 100; BMI 33.1
[2025-02-14] MEDS: LACTATED RINGERS 1,000 ML 150 ML IV CONT (11:14)
--- NOTE | 2025-02-14 12:16 | WPDANESEPPF ---
Anes - Initial Pre Proc Eval Procedure: Operation Date: 02/14/25 12:30 Proposed Procedures p Esophagogastroduodenoscopy & Colonoscopy - Jp Ramirez MD Date/Time: 02/14/25 12:16 Surgeon: Jp Ramirez MD Pre Op Diagnosis: GERD, upper abdominal pain, diarrhea Patient Data Age: 29 Gender: F Height: 1.55 m Weight: 79.5 kg Last Vital Signs Temp 97.3 F L 02/14/25 11:11 Pulse 72 02/14/25 11:11 Resp 18 02/14/25 11:11 BP 118/63 02/14/25 11:11 Pulse Ox 100 02/14/25 11:11 O2 Del Method Room Air 02/14/25 11:11 Allergies Allergy/AdvReac Type Severity Reaction Status Date / Time hydromorphone (From Dilaudid) AdvReac Anxiety Verified 02/14/25 11:12 sumatriptan (From Imitrex) AdvReac Anxiety Verified 02/14/25 11:12 Home Medications ?Medication ?Instructions ?Recorded ?Confirmed ?Type albuterol 90 mcg-budesonide 80 2 inh inhalation ONCE #32.1 grams 08/17/24 02/01/25 Rx mcg/actuation HFA aerosol inhaler (Airsupra) famotidine 20 mg tablet 20 mg PO DAILY #90 tabs 08/17/24 02/14/25 Rx ondansetron 8 mg disintegrating 8 mg PO Q12H PRN nausea and 01/09/25 02/01/25 Rx tablet vomiting #10 tabs desvenlafaxine succinate 50 mg 50 mg PO DAILY 02/14/25 History tablet,extended release 24 hr (Pristiq) lisdexamfetamine 30 mg capsule 30 mg PO DAILY 02/14/25 History (Vyvanse) Patient hx anesthesia problems: none Family hx anesthesia problems: none Results Review: All pre-operative results and documents have been reviewed as part of the pre-operative evaluation. [facility] Past Medical History Medical History Irritable bowel syndrome (IBS) Asthma Anxiety seeing psych Anemia Migraine Surgical History Surgical History No pertinent past surgical history Family History Family History Mother Cancer Depression Acute myocardial infarction Sibling Depression Grandparent Cancer Diabetes mellitus Hypertension Social History Social History Social History: 08/10/24 Very confident with medical forms Smoking status: Never smoker Tobacco type: cigarettes Alcohol intake: current Drinks per week: 4 Alcohol use details: Socially Substance use: never Substance use type: does not use Do You Feel Safe in your Home?: Yes Lack of Transportation: No Lack of Food: Never True Current Housing: I Have Housing Concerned About Future Housing: No Difficulty Paying Gas/Electric Bills: No Difficulty Paying for Meds: No Currently Unemployed: No Education: High School Diploma/GED Difficulty w/ Childcare or Family Care: No Living arrangements: with family Spiritual care concerns: No Agree to blood products: Yes Anes - Eval Final PreProcedure Day of Procedure 02/14/25 12:16 Patient weight: obese Lungs: normal air movement Airway: Mallampati scale class II Neurological: alert and oriented Last oral intake: >/= 8 hours ASA classification: II Emergent: no Anesthetic plan: proceed Anesthesia type and monitoring: general GIVS and standard monitoring Results Review: All pre-operative results and documents have been reviewed as part of the pre-operative evaluation. BMI 33, asthma, stable, migrane LUBIN, no cp or sob w 1-2 fos. Informed Consent: The patient's anesthetic plan and its attendant risks and benefits were discussed with the patient/family/POA. Questions were solicited and answers provided to the satisfaction of the patient/family/POA.
[2025-02-14] MEDS: BENZOCAINE (*SP) 60 ML SPRAY CAN (HURRICAINE) 1 SPRAY MUCOUS MEM (12:49)
--- NOTE | 2025-02-14 12:49 | PM.IMHP ---
H&P: HPI History of Present Illness Date/Time: 02/14/25 12:49 Chief Complaint: Diarrhea- bloody stools-heartburn Narrative: patient is here for EGD and colonoscopy for intermittent diarrhea, a least 4 times a week associated with frequent rectal bleeding. In addition patient has heartburn controlled with famotidine. Review of Systems Review of Systems: All systems reviewed & are unremarkable except as noted in HPI and below PMFSH Past Medical History Medical History Irritable bowel syndrome (IBS) Asthma Anxiety seeing psych Anemia Migraine Surgical History Surgical History No pertinent past surgical history Family History Family History Mother Cancer Depression Acute myocardial infarction Sibling Depression Grandparent Cancer Diabetes mellitus Hypertension Social History Social History Social History: 08/10/24 Very confident with medical forms Smoking status: Never smoker Tobacco type: cigarettes Alcohol intake: current Drinks per week: 4 Alcohol use details: Socially Substance use: never Substance use type: does not use Do You Feel Safe in your Home?: Yes Lack of Transportation: No Lack of Food: Never True Current Housing: I Have Housing Concerned About Future Housing: No Difficulty Paying Gas/Electric Bills: No Difficulty Paying for Meds: No Currently Unemployed: No Education: High School Diploma/GED Difficulty w/ Childcare or Family Care: No Living arrangements: with family Spiritual care concerns: No Agree to blood products: Yes Meds Home Medications and Allergies Home Medications ?Medication ?Instructions ?Recorded ?Confirmed ?Type albuterol 90 mcg-budesonide 80 2 inh inhalation ONCE #32.1 grams 08/17/24 02/01/25 Rx mcg/actuation HFA aerosol inhaler (Airsupra) famotidine 20 mg tablet 20 mg PO DAILY #90 tabs 08/17/24 02/14/25 Rx ondansetron 8 mg disintegrating 8 mg PO Q12H PRN nausea and 01/09/25 02/01/25 Rx tablet vomiting #10 tabs desvenlafaxine succinate 50 mg 50 mg PO DAILY 02/14/25 History tablet,extended release 24 hr (Pristiq) lisdexamfetamine 30 mg capsule 30 mg PO DAILY 02/14/25 History (Vyvanse) Allergies Allergy/AdvReac Type Severity Reaction Status Date / Time hydromorphone (From Dilaudid) AdvReac Anxiety Verified 02/14/25 11:12 sumatriptan (From Imitrex) AdvReac Anxiety Verified 02/14/25 11:12 Vital Signs Vital Signs - 24 hr 02/14/25 11:11 Temperature 97.3 F L Pulse Rate 72 Respiratory Rate 18 Blood Pressure 118/63 Pulse Oximetry 100 Oxygen Delivery Room Air Exam Const: General: cooperative and healthy appearing Resp: Effort & Inspection: normal respiratory effort and able to speak in complete sentences Auscultation: clear to auscultation bilaterally Cardio: Rate: regular rate Rhythm: regular rhythm GI: Inspection: normal to inspection GI Palp: No No hepatosplenomegaly present Auscultation: normal bowel sounds Rectal Exam: deferred Skin: General skin exam: normal color Psych: Appearance: grossly normal Mental Status: mental status grossly normal Assessment and Plan Assessment and plan (1) GERD (gastroesophageal reflux disease): Qualifiers: Esophagitis presence: without esophagitis Qualified Code(s): K21.9 - Gastro-esophageal reflux disease without esophagitis Code(s): K21.9 - Gastro-esophageal reflux disease without esophagitis Status: Acute Assessment and Plan: The patient is deemed a good candidate for the procedure. Consent signed. Will proceed. (2) Diarrhea: Qualifiers: Diarrhea type: functional diarrhea Qualified Code(s): K59.1 - Functional diarrhea Code(s): R19.7 - Diarrhea, unspecified Status: Acute
[2025-02-14 12:57] LABS: BEDSIDEPREGUCG Negative (Negative)
--- NOTE | 2025-02-14 13:05 | SUR.OPER ---
EGD end time: 1258, Colonoscopy start time: 1305
[2025-02-14 13:21] VITALS: BP 102/70; PULSE 73; RESP 21; O2SAT 100
[2025-02-14 13:31] VITALS: BP 116/91; PULSE 63; RESP 19; O2SAT 100
[2025-02-14 13:41] VITALS: BP 101/64; PULSE 70; RESP 21; O2SAT 100
== END 2025-02-14 13:50 | disposition home or self-care (01) ==
PROVIDERS: Anesthesiology; PCP Nurse Practitioner Family; Referring Provider Nurse Practitioner Family; Visit Provider Internal Medicine Gastroenterology
PROC: 0DJ08ZZ Inspection of Upper Intestinal Tract, Via Natural or Artificial Opening Endoscopic (ICD-10-PCS; CPT 45378; principal; 2025-02-14 12:30)
DX: K21.9 Gastro-esophageal reflux disease without esophagitis (principal); K64.8 Other hemorrhoids; K31.89 Other diseases of stomach and duodenum; K58.9 Irritable bowel syndrome, unspecified; J45.909 Unspecified asthma, uncomplicated; F41.9 Anxiety disorder, unspecified; D64.9 Anemia, unspecified; E66.9 Obesity, unspecified; Z68.33 Body mass index [BMI] 33.0-33.9, adult; Z79.51 Long term (current) use of inhaled steroids; Z80.9 Family history of malignant neoplasm, unspecified; Z82.49 Family history of ischemic heart disease and other diseases of the circulatory system
CPT/HCPCS: 43239; 45380; 88305; J2003; J2704; J7120

== ENCOUNTER 2025-04-02 17:16 | Emergency (ER) | payer BC, SELFPAY ==
--- NOTE | ~2025-04-02 | XR_ITS ---
XR chest 2V Ordering provider: Elbert Villarreal APRN History: 29 years Female with . cough, dyspnea, diminish lung sounds 1month nonsmoker . Comparison: February 17, 2023 FINDINGS: MEDIASTINUM: The cardiac silhouette is not enlarged. LUNGS: No infiltrates, effusions or pneumothorax. OTHER: No free air under the diaphragm. IMPRESSION: No acute cardiopulmonary pathology. Reviewed, dictated and finalized at location A.
--- OUTSIDE RECORDS SUMMARY | 2025-04-02 17:23 | XMS_ITS | Clinical Summary ---
Author Organization [facility] Address [address] [place] [address] Care Team Providers Care Favor Maker Name Role Phone Mayte Koch [facility] Primary Care Provider + [phone] Allergies Active Allergy Reactions Criticality Noted Date [...] Active Problems Problem Noted Date Diagnosed Date ([facility]) 01/05/2024 Gestational diabetes ([facility]) 12/06/2023 Family History Medical History [...] drink = 0.6 oz pur e alcohol) [facility] Utilities Answer Date Recorded In the past [...] week 01/05/2024 How often [facility] or pent[facility]ostalism services? Patient declined 01/05/2024 Do you belong [...] and heating? Not hard at all 01/05/2024 [facility] [place] of Occupat ional Health - Occupational Stress [...] place to sleep or slept in a detention (including now)? No 01/05/2024 Comments No Sex [...] 4:51 PM CDT Height 154.9 cm (5' 1) 01/05/2024 4:51 PM CDT Body Mass Index [...] Most Recently Relevant to Health Maintenance Insurance [facility] Advance Directives * Full Code (Latest Code [...] 5:57 PM 12/19/2023 11:51 PM Care Teams Favor Maker Relationship Specialty Start Date End Date Mayte Koch CNM [address] [place] [address] PCP - General CERTIFIED NURSE BREAKER ENGINEER 11/16/23
--- OUTSIDE RECORDS SUMMARY | 2025-04-02 17:23 | XMS_ITS | Data Portability ---
Author Organization [facility] Address [address] [place] [address] Assessment Encounter Date Assessment Date Assessment LastModified by Organization Details LastModified Time 05/21/2022 05/21/2022 Annual gynecological exam performed. Patient will come back in a year unless there are new symptoms. Not available 05/21/2022 15:43:19 Plan of Treatment Reminders Order Date Submit Date Provider Last Modified By Organization Details Last Modified Time Details Appointments None recorded. Lab dhea-sulfat e, serum 2021 [facility] (Lab), [address] [place], [address], 17:17:50 hormone panel, serum or plasma 2021 [facility] (Lab), [address] [place], [address], 17:17:52 progesteron e, serum 2021 [facility] (Lab), [address] [place], [address], 17:17:51 prolactin, serum 2021 [facility] (Lab), [address] [place], [address], 17:17:51 shbg (sex hormone-bin ding globulin), serum 2021 [facility] (Lab), [address], [place], [address], 17:17:52 TSH, serum or plasma 2021 [facility] (Lab), [address], [place], [address], 17:17:52 testosteron e free/testos terone total, ratio, serum 2021 [facility] (Lab), [address], [place], [address], 17:17:53 estradiol, serum 2021 [facility] (Lab), [address] [place], [address], 17:17:50 17-hydroxyp rogesterone , QN, serum 2021 [facility] (Lab), [address] [place], [address], 17:17:53 Referral None recorded. Procedures None recorded. Surgeries None recorded. Imaging None recorded. Medication Orders Slynd 4 mg (28) tablet 2021 [id number], [address], [place], [id number], 15:50:10 Patient TargetsNo targets recorded. Patient InstructionsNo instructions recorded. Reason for Referral None Reported. Results Created Date Observation Date Name Description Value Unit Range Abnormal Flag Note LastModifiedBy Organization Detail LastModifiedTime 09/10/20 21 09/10/2021 CBC W/DIF F WBC 7.1 10'3/ uL 3.6-10 .2 Not Available [facility] (Lab) [address], [place], [address], 09/17/2021 16:23:39 09/10/20 21 09/10/2021 CBC W/DIF F RBC 4.50 10'6/ uL (based on docume nted legal sex) 4.10-5 .30 Not Available [facility] (Lab) [address], [place], [address], 09/17/2021 16:23:39 09/10/20 21 09/10/2021 CBC W/DIF F HGB 13.4 g/dL (based on docume nted legal sex) 11.9-1 5.8 Not Available [facility] (Lab) [address] , [place], [address], 09/17/2021 16:23:39 09/10/20 21 09/10/2021 CBC W/DIF F HCT 40.1 % (based on docume nted legal sex) 37.4-4 8.3 Not Available [facility] (Lab) [address] , [place], [address], 09/17/2021 16:23:39 09/10/20 21 09/10/2021 CBC W/DIF F MCV 89.0 fL 82.0-9 9.0 Not Available [facility] (Lab) [address], [place], [address], 09/17/2021 16:23:39 09/10/20 21 09/10/2021 CBC W/DIF F MCH 30.0 pg 27.0-3 3.0 Not Available [facility] (Lab) [address] , [place], [address], 09/17/2021 16:23:39 09/10/20 21 09/10/2021 CBC W/DIF F MCHC 33.0 g/dL 32.0-3 6.0 Not Available [facility] (Lab) [address] , [place], [address], 09/17/2021 16:23:39 09/10/20 21 09/10/2021 CBC W/DIF F RDW 13.0 % 11.0-1 5.0 Not Available [facility] (Lab) [address], [place], [address], 09/17/2021 16:23:39 09/10/20 21 09/10/2021 CBC W/DIF F plt 266 10'3/ uL 150-45 0 Not Available [facility] (Lab) [address], [place], [address], 09/17/2021 16:23:39 09/10/20 21 09/10/2021 CBC W/DIF F MPV 10.9 fL 9.8-12 .7 Not Available [facility] (Lab) [address], [place], [address], 09/17/2021 16:23:39 09/10/20 21 09/10/2021 CBC W/DIF F NRBC's 0.00 % 0 Not Available [facility] (Lab) [address], [place], [address], 09/17/2021 16:23:39 09/10/20 21 09/10/2021 CBC W/DIF F absolute NRBCs 0.0 10'3/ uL 0 Not Available [facility] (Lab) [address], [place], [address], 09/17/2021 16:23:39 09/10/20 21 09/10/2021 CBC W/DIF F neutrophils 64.0 % 37.0-7 2.0 Not Available [facility] (Lab) [address], [place], [address], 09/17/2021 16:23:39 09/10/20 21 09/10/2021 CBC W/DIF F lymphocytes 25.0 % 16.0-4 8.0 Not Available [facility] (Lab) [address], [place], [address], 09/17/2021 16:23:39 09/10/20 21 09/10/2021 CBC W/DIF F monocytes 8.0 % 4.0-14 .0 Not Available [facility] (Lab) [address], [place], [address], 09/17/2021 16:23:39 09/10/20 21 09/10/2021 CBC W/DIF F eosinophils 2.0 % 0.0-9. 0 Not Available [facility] (Lab) [address], [place], [address], 09/17/2021 16:23:39 09/10/20 21 09/10/2021 CBC W/DIF F basophils 1.0 % 0.0-2. 0 Not Available [facility] (Lab) [address], [place], [address], 09/17/2021 16:23:39 09/10/20 21 09/10/2021 CBC W/DIF F immature granulocytes 0.0 % no define d refere nce range Not Available [facility] (Lab) [address], [place], [address], 09/17/2021 16:23:39 09/10/20 21 09/10/2021 CBC W/DIF F absolute neutrophils 4.6 10'3/ uL 1.1-6. 0 Not Available [facility] (Lab) [address], [place], [address], 09/17/2021 16:23:39 09/10/20 21 09/10/2021 CBC W/DIF F absolute lymphocytes 1.7 10'3/ uL 0.7-3. 4 Not Available [facility] (Lab) [address], [place], [address], 09/17/2021 16:23:39 09/10/20 21 09/10/2021 CBC W/DIF F absolute monocytes 0.5 10'3/ uL 0.3-1. 0 Not Available [facility] (Lab) [address] [place], [address], 09/17/2021 16:23:39 09/10/20 21 09/10/2021 CBC W/DIF F absolute eosinophils 0.1 10'3/ uL 0.0-0. 6 Not Available [facility] (Lab) [address], [place], [address], 09/17/2021 16:23:39 09/10/20 21 09/10/2021 CBC W/DIF F absolute basophils 0.0 10'3/ uL 0.0-0. 1 Not Available [facility] (Lab) [address], [place], [address], 09/17/2021 16:23:39 09/10/20 21 09/10/2021 CBC W/DIF [...] resul ts are expec nickolas. Not Available [facility] (Lab) [address], [place], [address], 09/17/2021 16:23:39 09/10/20 21 09/10/2021 URIC ACID uric acid 6.5 mg/dL 2.3-6. 6 Not Available [facility] (Lab) [address], [place], [address], 09/17/2021 16:23:39 09/10/20 21 09/10/2021 CMP(C OMPRE HENSI VE METAB OLIC PANEL ) sodium 141 mmol/ L 133-14 6 Not Available [facility] (Lab) [address], [place], [address], 09/17/2021 16:23:40 09/10/20 21 09/10/2021 CMP(C OMPRE HENSI VE METAB OLIC PANEL ) potassium 4.1 mmol/ L 3.5-5. 1 Not Available [facility] (Lab) [address], [place], [address], 09/17/2021 16:23:40 09/10/20 21 09/10/2021 CMP(C OMPRE HENSI VE METAB OLIC PANEL ) chloride 104 mmol/ L 98-107 Not Available [facility] (Lab) [address], [place], [address], 09/17/2021 16:23:40 09/10/20 21 09/10/2021 CMP(C OMPRE HENSI VE METAB OLIC PANEL ) carbon dioxide 27 mmol/ L 21-31 Not Available [facility] (Lab) [address], [place], [address], 09/17/2021 16:23:40 09/10/20 21 09/10/2021 CMP(C OMPRE HENSI VE METAB OLIC PANEL ) anion gap 10 mmol/ L 4-13 Not Available [facility] (Lab) [address], [place], [address], 09/17/2021 16:23:40 09/10/20 21 09/10/2021 CMP(C OMPRE HENSI VE METAB OLIC PANEL ) blood urea nitrogen 10 mg/dL 7-25 Not Available [facility] (Lab) [address] [place], [address], 09/17/2021 16:23:40 09/10/20 21 09/10/2021 CMP(C OMPRE HENSI VE METAB OLIC PANEL ) creatinine 0.85 mg/dL 0.60-1 .30 Not Available [facility] (Lab) [address], [place], [address], 09/17/2021 16:23:40 09/10/20 21 09/10/2021 CMP(C OMPRE HENSI VE METAB OLIC PANEL ) egfrcr (CKD-epi 2020) >90 mL/mi n/1.7 3_m2 >=60 Not Available [facility] (Lab) [address], [place], [address], 09/17/2021 16:23:40 09/10/20 21 09/10/2021 CMP(C OMPRE HENSI VE METAB OLIC PANEL ) calcium 10.0 mg/dL 8.3-10 .5 Not Available [facility] (Lab) [address], [place], [address], 09/17/2021 16:23:40 09/10/20 21 09/10/2021 CMP(C OMPRE HENSI VE METAB OLIC PANEL ) glucose 91 mg/dL 70-100 Not Available [facility] (Lab) [address], [place], [address], 09/17/2021 16:23:40 09/10/20 21 09/10/2021 CMP(C OMPRE HENSI VE METAB OLIC PANEL ) protein, total 7.3 g/dL 6.4-8. 3 Not Available [facility] (Lab) [address], [place], [address], 09/17/2021 16:23:40 09/10/20 21 09/10/2021 CMP(C OMPRE HENSI VE METAB OLIC PANEL ) albumin 4.9 g/dL 3.5-5. 0 Not Available [facility] (Lab) [address] [place], [address], 09/17/2021 16:23:40 09/10/20 21 09/10/2021 CMP(C OMPRE HENSI VE METAB OLIC PANEL ) ALT 14 units /L 9-43 Not Available [facility] (Lab) [address], [place], [address], 09/17/2021 16:23:40 09/10/20 21 09/10/2021 CMP(C OMPRE HENSI VE METAB OLIC PANEL ) alkaline phosphatase 64 units /L 34-104 Not Available [facility] (Lab) [address], [place], [address], 09/17/2021 16:23:40 09/10/20 21 09/10/2021 CMP(C OMPRE HENSI VE METAB OLIC PANEL ) AST 15 units /L 13-39 Not Available [facility] (Lab) [address], [place], [address], 09/17/2021 16:23:40 09/10/20 21 09/10/2021 CMP(C OMPRE HENSI VE METAB OLIC PANEL ) bilirubin, total 0.5 mg/dL 0.2-1. 2 Not Available [facility] (Lab) [address], [place], [address], 09/17/2021 16:23:40 09/10/20 21 09/10/2021 FREE T3 T3, free 4.0 pg/mL 2.5-3. 9 high Not Available [facility] (Lab) [address] [place], [address], 09/17/2021 16:23:40 09/10/20 21 09/10/2021 DHEA SULFA TE DHEA-sulfate 388 ug/dL Femal e Range s Age(y ) Range (ug/d L) 10-15 34-28 0 15-20 65-36 8 20-25 148-4 07 25-35 99-34 0 35-45 61-33 7 45-55 35-25 6 55-65 19-20 5 65-75 9-246 > 75 12-15 4 Not Available [facility] (Lab) [address], [place], [address], 09/17/2021 16:23:41 09/10/20 21 09/10/2021 TSH, REFLE X FREE T4 TSH 1.28 uIU/m L 0.30-5 .33 Not Available [facility] (Lab) [address], [place], [address], 09/17/2021 16:23:41 09/10/20 21 09/10/2021 HUMAN SEX HORMO NE ANNIE NG GLOBU MILADIS sex hormone binding globulin 60.3 nmole s/L 18.2-1 35.5 Not Available [facility] (Lab) [address], [place], [address], 09/17/2021 16:23:42 09/10/20 21 09/10/2021 PROGE STERO [...] Trime ster5 8.70- 214.0 0 Not Available [facility] (Lab) [address], [place], [address], 09/17/2021 16:23:42 09/10/20 21 09/10/2021 PROLA CTIN prolactin, total 9.04 NG/mL 4.79-2 3.30 This assay was perfo rmed using [employer] ratio n reage nts and test kits. Value s obtai janna with other assay metho ds or kits canno t be used inter [facility] . Not Available [facility] (Lab) [address], [place], [address], 09/17/2021 16:23:42 09/10/20 21 09/10/2021 T4 FREE T4, free 0.72 NG/dL 0.60-1 .40 Not Available [facility] (Lab) [address] [place], [address], 09/17/2021 16:23:43 09/10/20 21 09/10/2021 LH (LUTE NIZIN G HORMO NE) LH 9.4 mIU/m L This assay was perfo rmed using [employer] n reage nts and test kits. Value s obtai janna with other assay metho ds or kits canno t be used inter [facility] . Femal es Mid-F ollic ular: 2.4-1 2.6 mIU/m L Mid-C ycle: 14.0- 95.6 mIU/m L Mid-L uteal : 1.0-1 1.4 mIU/m L Postm enopa use: 7.7-5 8.5 mIU/m L Not Available [facility] (Lab) [address], [place], [address], 09/17/2021 16:23:43 09/10/20 21 09/10/2021 FSH FSH 10.4 mIU/m L This assay was perfo rmed using [employer] ratio n reage nts and test kits. Value s obtai janna with other assay metho ds or kits canno t be used inter [facility] . Femal es Folli cular : 3.5-1 2.5 mIU/m L Ovula tion: 4.7-2 1.5 mIU/m L Lutea l: 1.7-7 .7 mIU/m L Postm enopa use: 25.8- 134.8 mIU/m L Not Available [facility] (Lab) [address], [place], [address], 09/17/2021 16:23:44 09/10/20 21 09/10/2021 ESTRA DIOL estradiol <5.0 pg/mL This assay was perfo rmed using [employer] ratio n reage nts and test kits. Value s obtai janna with other assay metho ds or kits canno t be used inter [facility] . Femal e Estra diol Range s: Folli cular phase 12.4- 233 pg/mL Ovula tion phase 41.0- 398 pg/mL Lutea l phase 22.3- 341 pg/mL Postm enopa usal< 5-138 pg/mL Healt hy Pregn ant Women 1st Trime ster1 54-32 43 pg/mL 2nd Trime ster1 561-2 1280 pg/mL 3rd Trime ster8 525-> 08007 pg/mL Not Available [facility] (Lab) [address], [place], [address], 09/17/2021 16:23:44 09/10/20 21 09/10/2021 HEMOG LOBIN [...] >8.0% Actio n sugge sted Not Available [facility] (Lab) [address], [place], [address], 09/17/2021 16:23:45 09/10/20 21 09/10/2021 TESTO STERO NE, FREE( DIALY SIS) AND TOTAL (LC/M S/MS) testosterone , total 17 NG/dL 2-45 For addit ional infor mario lynn e refer to http: //[facility] stdia gnost ics.c om/fa q/Tot alTes liana Velasquez [facility] (This link is being provi ded for [...] ation s and is used for clini yuridia purpo ses. Not Available [facility] (Lab) [address] [place], [address], 09/17/2021 16:23:45 09/10/20 21 09/10/2021 TESTO STERO NE, FREE( DIALY SIS) AND TOTAL (LC/M S/MS) testosterone , free 1.6 pg/mL 0.1-6. 4 This test was devel oped and its reji tical perfo rmanc e aquilino cteri stics have been deter mined by [employer]. It has not been clear ed or appro leana by the FDA. This assay has been valid ated pursu ant to the CLIA regul ation s and is used for clini yuridia purpo ses. Perfo rming Organ izati on Infor matio n: Site ID: [id number] Name: [employer] [facility]-Armaan kevan Daveen lydia Addre ss: [id number] [place] [address] Direc tor: Lin bolivar M.D. Not Available [facility] (Lab) [address], [place], [address], 09/17/2021 16:23:45 09/10/20 21 09/10/2021 17-OH PROGE [...] Diagn ostic s [facility]von [facility] . It has not been clear ed or appro leana by FDA. This assay has been valid ated pursu ant to the CLIA regul ation s and is used for clini yuridia purpo ses. Perfo rming Organ izati on Infor matio n: Site ID: EZ Name: [facility]/Armaan hols [facility] [address] [place] , Addre ss: [id number] [place] [address] Direc tor: Linda ipnk MD,Ph D,KRISSY Not Available [facility] (Lab) [address], [place], [address], 09/17/2021 16:23:46 11/07/19 22 11/07/2021 DHEA SULFA TE DHEA-sulfate 275 ug/dL Femal e Range s Age(y ) Range (ug/d L) 10-15 34-28 0 15-20 65-36 8 20-25 148-4 07 25-35 99-34 0 35-45 61-33 7 45-55 35-25 6 55-65 19-20 5 65-75 9-246 > 75 12-15 4 Not Available [facility] (Lab) [address], [place], [address], 11/11/2021 17:17:50 11/07/19 22 11/07/2021 ESTRA DIOL [...] 561-2 1280 pg/mL 3rd Trime ster8 525-> 96312 pg/mL Not Available [facility] (Lab) [address], [place], [address], 11/11/2021 17:17:50 11/07/19 22 11/07/2021 PROGE STERO NE progesterone 0.25 NG/mL This assay was perfo rmed using [employer] n reage nts and test kits. Value s obtai janna with other assay metho ds or kits canno t be used inter [facility] . Femal e Proge stero ne Range s: Folli cular phase 0.06- 0.89 ng/mL Ovula tion phase 0.12- 12.00 ng/mL Lutea l phase 1.83- 23.90 ng/mL Postm enopa usal< 0.05- 0.13 ng/mL Healt hy Pregn ant Women 1st Trime ster1 1.0-4 4.30 2nd Trime ster2 5.40- 83.30 3rd Trime ster5 8.70- 214.0 0 Not Available [facility] (Lab) [address], [place], [address], 11/11/2021 17:17:51 11/07/19 22 11/07/2021 PROLA CTIN prolactin, total 4.12 NG/mL 4.79-2 3.30 low This assay was perfo rmed using [employer] n reage nts and test kits. Value s obtai janna with other assay metho ds or kits canno t be used [facility] . Not Available [facility] (Lab) [address] , [place], [address], 11/11/2021 17:17:51 11/07/19 22 11/07/2021 FSH, LH, ESTRA DIOL estradiol 44.9 pg/mL This assay was perfo rmed using [employer] n reage nts and test kits. Value s obtai janna with other assay metho ds or kits canno t be used inter [facility] . Femal e Estra diol Range s: Folli cular phase 12.4- 233 pg/mL Ovula tion phase 41.0- 398 pg/mL Lutea l phase 22.3- 341 pg/mL Postm enopa usal< 5-138 pg/mL Healt hy Pregn ant Women 1st Trime ster1 54-32 43 pg/mL 2nd Trime ster1 561-2 1280 pg/mL 3rd Trime ster8 525-> 68696 pg/mL This assay was perfo rmed using [employer] ratio n reage nts and test kits. Value s obtai janna with other assay metho ds or kits canno t be used inter [facility] . Femal e Estra diol Range s: Folli cular phase 12.4- 233 pg/mL Ovula tion phase 41.0- 398 pg/mL Lutea l phase 22.3- 341 pg/mL Postm enopa usal< 5-138 pg/mL Healt hy Pregn ant Women 1st Trime ster1 54-32 43 pg/mL 2nd Trime ster1 561-2 1280 pg/mL 3rd Trime ster8 525-> 77366 pg/mL Not Available [facility] (Lab) [address] [place], [address], 11/11/2021 17:17:51 11/07/19 22 11/07/2021 FSH, LH, ESTRA DIOL FSH 10.6 mIU/m L This assay was perfo rmed using [employer] ratio n reage nts and test kits. Value s obtai janna with other assay metho ds or kits canno t be used inter [facility] . Femal es Folli cular : 3.5-1 2.5 mIU/m L Ovula tion: 4.7-2 1.5 mIU/m L Lutea l: 1.7-7 .7 mIU/m L Postm enopa use: 25.8- 134.8 mIU/m L Not Available [facility] (Lab) [address] [place], [address], 11/11/2021 17:17:51 11/07/19 22 11/07/2021 FSH, LH, [...] use: 7.7-5 8.5 mIU/m L Not Available [facility] (Lab) [address], [place], [address], 11/11/2021 17:17:51 11/07/19 22 11/07/2021 TSH, REFLE X FREE T4 TSH 1.12 uIU/m L 0.30-5 .33 Not Available [facility] (Lab) [address] [place], [address], 11/11/2021 17:17:52 11/07/19 22 11/07/2021 HUMAN SEX HORMO NE ANNIE NG GLOBU MILADIS sex hormone binding globulin 96.1 nmole s/L 18.2-1 35.5 Not Available [facility] (Lab) [address] [place], [address], 11/11/2021 17:17:52 11/07/19 22 11/07/2021 17-OH PROGE [...] ation s and is used for clini yuridia purpo ses. Perfo rming Organ izati on Norbertor aracelijuanjo seo: Site ID: EZ Name: [facility]/Armaan kevan [facility] , Addre ss: [id number] [place] [address] Direc tor: Linda pink MD,Ph D,KRISSY Not Available [facility] (Lab) [address] [place], [address], 11/11/2021 17:17:53 11/07/19 22 11/07/2021 TESTO STERO NE, FREE( DIALY SIS) AND TOTAL (LC/M S/MS) testosterone , total 43 NG/dL 2-45 For addit ional mario lubin e refer to http: //[facility] stdia gnost ics.c om/fa q/Tot alTes liana Velasquez [facility] (This link is being provi ded for infor aracelijuanjo jo/ educsandra lin l purpo ses only. ) This test was devel oped and its reji tical perfo rmanc e aquilino cteri stics have been deter mined by [employer] [facility]. It has not been clear ed or appro leana by the FDA. This assay has been valid ated pursu ant to the CLIA regul ation s and is used for clini yuridia purpo ses. Not Available [facility] (Lab) [address], [place], [address], 11/11/2021 17:17:53 11/07/19 22 11/07/2021 TESTO STERO [...] ation s and is used for clini yuridia purpo ses. Perfo rming Organ izati on Infor matio n: Site ID: [id number] Name: [facility]-Armaan kevan Schmidt cia Addre ss: [id number] [place] [address] Direc tor: Lin bolivar M.D. Not Available [facility] (Lab) [address], [place], [address], 11/11/2021 17:17:53 05/21/20 22 05/21/2022 IMAGE GUIDE D PAP, REFLE X HPV IF ASCUS ONLY image guided Pap, reflex HPV ASCUS only SEE RESULT S BELOW CASE REPOR T: Cytol ogy Gynec ologi yuridia Repor t Case: [id number] Autho sae brito Provi kia: Isael Houston Colle cted: 05/21 1650 DIAL PRINTER Order ing Locat ion: [place] [facility] [...] Intra epith elial Cali seo or Betsy lawrecne (NIL) . Elect chantale paredes d by [...] Thinp rep Imagi ng Syste m. CLINI YURIDIA INFOR MATIO N: Menst rual Statu s: LMP (if appli cable ): Clini yuridia Histo ry/Pr eviou s Pap: Type of Neopl eyal (if appli cable ): Signi fican t Clini yuridia Findi ngs: Other Histo ry: Hormo berenice [...] ng do not corre late with physi yuridia and/o r histo rical findi ngs, furth er inves tigat ion is recom kika d, as clinnarcisa bennett nted. Not Available [facility] [address] [place], [address], 05/27/2022 13:52:00 05/21/20 22 05/21/2022 TRICH OMONA S VAGIN MARVIN (RRNA ) trichomonas vaginalis ribosomal RNA (rrna) Negati ve negati ve Not Available [facility] [address], [place], [address], 05/27/2022 13:52:00 05/21/20 22 05/21/2022 CT/GC (BELLA) , THINP REP VIAL chlamydia trachomatis, PCR Negati ve negati ve Not Available [facility] [address], [place], [address], 05/27/2022 13:52:01 05/21/20 22 05/21/2022 CT/GC (BELLA) , THINP REP VIAL neisseria gonorrhoeae, PCR Negati ve negati ve Not Available [facility] [address], [place], [address], 05/27/2022 13:52:01 09/17/20 21 09/17/2021 US, pelvi s No observ ation record ed. [email or web address] [place] [address], [place], [address], 09/17/2021 17:37:23 09/17/20 21 09/17/2021 US, trans vagin al No observ ation record ed. [email or web address] [place] [address], [place], [address], 09/17/2021 17:37:32 09/17/20 21 09/17/2021 US, pelvi s No observ ation record ed. [email or web address] [place] [address], [place], [address], 09/17/2021 15:18:26 Result Notes None recorded. Procedures Surgical History Date Name Laterality Status Provider Name and Address Organization Details Recorded Time 05/21/20 22 Date of Last Pap Smear completed Rupal Mendoza [facility] 09/03/2022 11:42:38 09/06/20 21 IUD Removal completed Rodriguez Thomas MD [address], [place], [address], [facility] 09/06/2021 18:52:19 10/18/19 12 Date of Last Colonoscopy completed Eugenie [facility] 11/12/2022 17:54:30 10/18/19 12 Tonsillectomy completed [facility] 11/12/2022 14:17:45 10/18/19 12 Colonoscopy completed [facility] 11/12/2022 14:17:54 10/18/19 12 endoscopy completed [facility] 11/12/2022 14:18:04 10/18/19 03 procedure on nose completed [facility] 11/12/2022 14:18:19 Imaging Results None recorded. Procedure Notes None recorded. Medical Equipment None Reported. Allergies Allergen ID Allergen Name Allergen Category Reaction Reaction Severity Criticality Documentation Date Start Date Code Code System Note Provider Name and Address Organization Details Recorded Time 83053 Dilaudid medicatio n Not available Not available Not available 09/06/2021 99400 3 RxNorm Danita Chitra [facility] 1 11:59:41 45387 sumatript an medicatio n other Not available Not available 11/12/2022 68161 RxNorm panic attac [facility] 3 14:16:08 Medications Name Sig Start [...] Updated DateTime 11/01/2021 154.94 cm 31.4 kg/m2 64814.33 g 135 mm[Hg] 82 mm[Hg] Sil Villa [facility] 2 10:30:38 Date Recorded Body height Body mass index (BMI) Body weight Systolic blood pressure Diastolic blood pressure Provider Name and Address Organization Details Last Updated DateTime 11/12/2022 154.94 cm 34.8 kg/m2 88873 g 116 mm[Hg] 78 mm[Hg] Eugenie Zurita [facility] 3 14:15:01 Date Recorded Body height Body mass index (BMI) Body weight Systolic blood pressure Diastolic blood pressure Provider Name and Address Organization Details Last Updated DateTime 05/21/2022 154.94 cm 32.5 kg/m2 34308.89 g 112 mm[Hg] 74 mm[Hg] Rupal [facility], [facility] 2 15:43:52 Date Recorded Body height Systolic blood pressure Diastolic blood pressure Provider Name and Address Organization Details Last Updated DateTime 09/03/2022 154.94 cm 110 mm[Hg] 70 mm[Hg] Rupal [facility] 09/03/2022 11:41:34 Date Recorded Body height Body mass index (BMI) Body weight Systolic blood pressure Diastolic blood pressure Provider Name and Address Organization Details Last Updated DateTime 10/04/2021 154.94 cm 30.8 kg/m2 45351.56 g 135 mm[Hg] 73 mm[Hg] Danita Buenrostro [facility] 1 10:47:56 Social History Question Answer Notes LastModified by Organizat ion Details LastModified Time Tobacco Smoking Status Never Smoker Eugenie Zurita [facility] 11/12/2022 14:15:12 Do You Have An Advance Directive? No Information n ot available 11/01/2021 How Many Years Have You Consumed Alcohol? 3 Information not available 11/01/2021 Are You Blind Or Do You Have Difficulty Seeing? Yes Information n ot available 11/01/2021 What Is Your Level Of Caffeine Consumption? Moderate Information not available 11/01/2021 How Much Tobacco Do You Chew? None Information not available 11/01/2021 In The 14 Days Before Symptom Onset, Have You Had Close Contact With A Laboratory-confirm ed COVID-19 While That Case Was Ill? No Information n ot available 11/01/2021 In The 14 Days Before [...] Of Diet Are You Following? REGULAR Information n ot available 11/01/2021 What Is The Highest Grade Or Level Of School You Have Completed Or The Highest Degree You Have Received? [id number] Information not available 11/01/2021 Are There Any Guns Present In Your Home? No Information not available 11/01/2021 Have You Ever Been Counseled For Unhealthy Alcohol Use? No [email or web address] Information not available 11/12/2022 Do You Use Protection During Sex? No Information not available 11/12/2022 Do You Use Your Seat Belt Or Car Seat Routinely? Yes Information not available 11/01/2021 Do You Have Smoke And Carbon Monoxide Detectors In Your Home? Yes Information not available 11/01/2021 How Much Tobacco Do You Smoke? No Information not available 11/01/2021 Do You Use Sunscreen Routinely? No Information not available 11/01/2021 Has Tobacco Cessation Counseling Been Provided? No [email or web address] Information not available 11/12/2022 Have You Used IV Drugs? No Information not available 11/01/2021 Do You Have Difficulty Walking Or Climbing Stairs? No [email or web address] Information not available 11/12/2022 Sex: Unknown Functional Status Question Answer Note LastModified by Organizat ion Details LastModified Time Do you use any illicit or recreational drugs? No Information not available 09/06/2021 Do you or have you ever used any other forms of tobacco or nicotine? No [email or web address] Information not available 11/12/2022 What is your level of alcohol consumption? Occasional Information not available 09/06/2021 Are you able to walk? YESWOREST Information not available 11/01/2021 Are you able to care for yourself? 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 No [email or web address] Information not available 11/12/2022 What is your exercise level? Moderate Information not available 11/01/2021 Mental Status Question Answer Note LastModified by Organization D etails LastModified Time Do you feel stressed (tense, restless, nervous, or anxious, or unable to sleep at night)? [id number] Information not available 09/03/2022 Family History Relationship Description Onset Age of this Age Resolved Age Notes LastModified by Organization Details LastModified Time Mother Cerebrovascu lar accident Not available 10:30:42 Mother History of endometriosi s [email or web address] Not available 2022 13:32:18 Mother Anxiety disorder Not available 2021 10:30:42 Mother Depressive disorder Not available 2021 10:30:42 Father Heart disease pacema ker Not available 11/01/2021 10:30:42 Father Pulmonary emphysema [email or web address] Not available 01/26/ 2023 13:32:18 Maternal Grandmother Congestive heart failure [email or web address] Not available 2022 13:32:18 Maternal Grandmother Diabetes mellitus Not available 2021 10:30:42 Maternal Grandmother Carcinoma in situ of uterus Not available 2022 13:32:18 Maternal Grandfather Carcinoma of prostate [email or web address] Not available 2022 13:32:18 Maternal Grandfather Carcinoma in situ of skin [email or web address] Not available 13:32:18 Maternal Grandfather Carcinoma in situ of pancreas [email or web address] Not available 2022 13:32:18 Maternal Grandfather Carcinoma in situ of colon [email or web address] Not available 2022 13:32:18 Maternal Grandfather Carcinoma in situ of lung [email or web address] Not available 13:32:18 Paternal Aunt Disorder of thyroid gland Not available 2021 10:30:42 Medical History Condition Response Allergies (Food, seasonal, environmental ) Y Other N Drug/Latex Allergies/Reactions Y Blood Transfusion N Breast Cancer N Dermatologic Disorders Y Lung Disease N Defects or Inherited Disease N Breast Problem N Gestational Diabetes N Hematologic disorders N Anesthesia Complications N History of STI N Deep Vein Thrombosis Y Polycystic ovary syndrome N Anxiety Disorder Y Autoimmune disease N Arthritis N Polyps N Infertility N Acid Reflux (GERD) N History of abnormal pap N Cancer N Varicosities N Stroke N Neurologic/Epilepsy N Endometriosis N High Cholesterol N Fibromyalgia N Headaches Y Kidney Disease N Heart Problems N Thyroid Problems N Kidney or Bladder Problems N GI Problems N Eating Disorder [...] SNOMED-CT Code Diagnosis ICD10 Code Diagnosis Note [id number] Rodriguez Thomas MD [place] [address],[place] [address] 09/06/2021 11:47:03 09/06/2021 12:38:02 Abnormal uterine bleeding [id number] 9100 N93.9 this patient is a 25-year-ol [...] and laboratory evaluation to formed treatment plan. [id number] Rodriguez Thomas MD [place] [address],[place] [address] 09/17/2021 14:19:29 09/17/2021 15:06:56 Abnormal uterine bleeding [id number] 9100 N93.9 this patient is a 25-year-ol [...] and laboratory evaluation to formed treatment plan. [id number] Rodriguez Thomas MD [place] [address],[place] [address] 10/04/2021 10:41:50 10/04/2021 11:50:47 Abnormal uterine bleeding [id number] 9100 N93.9 This patient is a 25-year-ol [...] weight loss and metformin. Polycystic ovary syndrome [id number] E28.2 [id number] Rodriguez Thomas MD [place] [address],[place] [address] 11/01/2021 10:23:37 11/03/2021 09:56:24 Abnormal uterine bleeding [id number] 9100 N93.9 This patient is a 25-year-ol [...] her care in this detailed bleeding problem. [id number] Marie Mccarthy [facility] [address],[place] [address] 05/21/2022 15:27:54 05/21/2022 16:11:48 Gynecologic examination [id number] Z01.419 Take Calcium with Vitamin D 1200mg [...] c Screen discussedC olon Screen naDexa Screen [facility] ion care management [id number] Z30.9 Discussed all control options in great [...] of SLYND with med check in 3mos. [id number] JO [facility] [address],[place] [address] 09/03/2022 11:05:40 09/03/2022 12:29:36 Contraception care management [id number] Z30.9 Patient is here today for a [...] counseling and review of plan of care. [id number] Bonita Spain [facility] [address],[place] [address] 11/12/2022 13:30:32 11/12/2022 16:18:27 Contraception care management [id number] Z30.9 Discussed discontinu ation of slynd and [...] None Recorded Advance Directives Directive N: Payers Insurance Date Sequence Insurance Name Policy Number Policy Leung Covered Member ID Leung Member ID Guarantor Name 05/21/2022 1 [place] [facility] (MEDICAID REPLACEMENT - HMO) [id number] Elizabeth Barr [id number] Elizabeth Reckert 05/21/2022 1 [place] [id number] Elizabeth Barr [id number] Elizabeth Reckert 11/12/2022 1 [place] [id number] Elizabeth Land [id number] Elizabeth Land Notes Date Note Type Note Provider Name [...] becoming . We spent over 35 minutes [id number]. We agreed to start an estrogen only hormone regimen for 1 month. I believe that this will best serve her thin endometrium given that her control pills have failed. She took a week or 10 days of high-dose oral contraceptive pills that did not control her bleeding. Rodriguez Thomas MD [address], [place], [address], [facility] 10/04/2021 11:30:49 11/01/2021 text/html This patient [...] week next week. We spent 15 minutes [id number] discussing multiple aspects of her care in this detailed bleeding problem. Rodriguez Thomas MD [address], [place], [address], [facility] 11/01/2021 13:09:27 05/21/2022 text/html Annual GYNReport [...] Followed with yearly pap smears Marie Mccarthy [facility] [address], [place], [address], [facility] 05/21/2022 16:02:39 09/03/2022 text/html Here today for medication check of SLYND. Marie Mccarthy [facility] [address], [place], [address], [facility] 09/03/2022 12:23:38 11/12/2022 text/html Pt on slynd. Wou ld like to discontinue to conceive. She has already started taking prenatals with dha and folic acid. Bonita gimenez, [facility] 11/12/2022 16:11:09 OBGyn Episode No OBEpisode recorded.
--- OUTSIDE RECORDS SUMMARY | 2025-04-02 17:24 | XMS_ITS | Patient Health Record ---
Author Organization [facility] Address [address] [place] [address] Care Team Providers Care Mechanical Technician Name Role Phone Lisset Hobbs Primary Care Provider Jhonatan Issa Unavailable [phone] Allergies Allergen (clinical drug ingredient) Drug/Non Drug Allergy documented on EMR Reaction Allergy Type Onset Date Status hydromorphone Dilaudid Unknown Drug Allergy 11/05/2023 Ac tive Reason For Referral No Information Medications Medication SIG (Take, Route, Frequency, Duration) Notes Start Date End Date Status Sertraline HCl 100 MG 1 tablet by mouth once a day for 90 days 02/01/2024 Active Sertraline HCl 50 MG 1 tablet Orally Once a day for 90 days take with 100mg tablet 07/12/2024 Active Famotidine 20 MG Oral 02/01/2024 Ac tive buPROPion HCl ER (XL) 150 MG 1 tablet in the morning by mouth Once a day for 30 days 07/07/2024 Active *Pick strength-form from [facility] for eRX* 02/01/2024 Active Social History Sex Assigned At : Social History Observation Description Sex Assigned At Female Vital Signs Heart Rate 118 /min 07/07/2024 Height-cm 152.40 cm 07/07/2024 Blood pressure diastolic 73 mm Hg 07/07/2024 Weight-kg 76.29 kg 07/07/2024 Height 60.00 in 07/07/2024 Blood pressure systolic 113 mm Hg 07/07/2024 Weight 168.2 lbs 07/07/2024 BMI 32.85 kg/m2 07/07/2024 Encounters Encounter Location Date Provider Diagnosis [facility] [address] [place] [address] 04/07/2024 Jhonatan Crane [facility] [address] [place] [address] 07/07/2024 Jhonatan Hardina Generalized anxiety disorder F41.1 ; Post-traumatic stress disorder, chronic F43.12 ; state Z39.2 and Major depressive disorder, recurrent, mild F33.0 [facility] [address] [place] [address] 09/08/2024 Jhonatan Crane [facility] [address] [address] 07/11/2024 Jhonatan Crane Generalized anxiety disorder F41.1 [facility] [address] [address] 09/12/2024 Jhonatan Crane [facility] [address] [facility] [address] [place] [address] 04/02/2024 Jhonatan Crane [facility] [address] [facility] [address] [place] [address] 07/11/2024 Jhonatan Crane Generalized anxiety disorder F41.1 and Major depressive disorder, recurrent, mild F33.0 [facility] [address] [facility] [address] [place] [address] 09/05/2024 Jhonatan Crane [facility] [address] [address] 09/05/2024 Jhonatan Crane Assessments Encounter Date Diagnosis (ICD Code) Assessment Notes Treatment Notes Treatment Clinical Notes Section Notes 07/11/2024 Generalized anxiety disorder (ICD-10 - F41.1) 07/11/2024 Generalized anxiety disorder (ICD-10 - F41.1) 07/07/2024 Generalized anxiety disorder (ICD-10 - F41.1) 1. Depression: - Patient reports worsening depression in recent weeks, exacerbated by the of her grandmother and possible separation anxiety from her . Plan: - Increase Sertraline dosage to 150 mg daily to address depression and anxiety. - Reevaluate in one month. 2. 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 Plan: - Continue Sertraline at increased dosage (150 mg daily) to address anxiety. - Encourage patient to discuss anxiety triggers and coping strategies with her therapist. 3. ADHD: - Patient has a history of unofficial ADHD diagnosis but has not taken medication for it. Plan: - Defer initiation of ADHD medication due to . - Reassess the need for ADHD treatment after is discontinued. 4. Irritability and relationship stress: - Patient reports irritability and frustration with her , feeling overwhelmed with childcare and household responsibilities. Plan: - Encourage patient to continue discussing these issues with her therapist and explore potential solutions for better communication and division of responsibilities with her . 5.Dissociative episodes: - Patient reports two episodes of feeling disconnected from her and experiencing fear. Plan: - Encourage patient to discuss these episodes with her therapist to identify potential triggers and develop coping strategies. - Monitor for any recurrence or worsening of symptoms. 07/07/2024 Post-traumatic stress disorder, chronic (ICD-10 - F43.12) 1. Depression: - Patient reports worsening depression in recent weeks, exacerbated by the of her grandmother and possible separation anxiety from her infant. Plan: - Increase Sertraline dosage to 150 mg daily to address depression and anxiety. - Reevaluate in one month. 2. 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 Plan: - Continue Sertraline at increased dosage (150 mg daily) to address anxiety. - Encourage patient to discuss anxiety triggers and coping strategies with her therapist. 3. ADHD: - Patient has a history of unofficial ADHD diagnosis but has not taken medication for it. Plan: - Defer initiation of ADHD medication due to . - Reassess the need for ADHD treatment after is discontinued. 4. Irritability and relationship stress: - Patient reports irritability and frustration with her , feeling overwhelmed with childcare and household responsibilities. Plan: - Encourage patient to continue discussing these issues with her therapist and explore potential solutions for better communication and division of responsibilities with her . 5.Dissociative episodes: - Patient reports two episodes of feeling disconnected from her infant and experiencing fear. Plan: - Encourage patient to discuss these episodes with her therapist to identify potential triggers and develop coping strategies. - Monitor for any recurrence or worsening of symptoms. 07/07/2024 state (ICD-10 - Z39.2) 6 months post 1. Depression: - Patient reports worsening depression in recent weeks, exacerbated by the of her grandmother and possible separation anxiety from her . Plan: - Increase Sertraline dosage to 150 mg daily to address depression and anxiety. - Reevaluate in one month. 2. 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 Plan: - Continue Sertraline at increased dosage (150 mg daily) to address anxiety. - Encourage patient to discuss anxiety triggers and coping strategies with her therapist. 3. ADHD: - Patient has a history of unofficial ADHD diagnosis but has not taken medication for it. Plan: - Defer initiation of ADHD medication due to . - Reassess the need for ADHD treatment after is discontinued. 4. Irritability and relationship stress: - Patient reports irritability and frustration with her , feeling overwhelmed with childcare and household responsibilities. Plan: - Encourage patient to continue discussing these issues with her therapist and explore potential solutions for better communication and division of responsibilities with her . 5.Dissociative episodes: - Patient reports two episodes of feeling disconnected from her and experiencing fear. Plan: - Encourage patient to discuss these episodes with her therapist to identify potential triggers and develop coping strategies. - Monitor for any recurrence or worsening of symptoms. 07/11/2024 Major depressive disorder, recurrent, mild (ICD-10 - F33.0) 07/07/2024 Major depressive disorder, recurrent, mild (ICD-10 - F33.0) 1. Depression: - Patient reports worsening depression in recent weeks, exacerbated by the of her grandmother and possible separation anxiety from her . Plan: - Increase Sertraline dosage to 150 mg daily to address depression and anxiety. - Reevaluate in one month. 2. 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 Plan: - Continue Sertraline at increased dosage (150 mg daily) to address anxiety. - Encourage patient to discuss anxiety triggers and coping strategies with her therapist. 3. ADHD: - Patient has a history of unofficial ADHD diagnosis but has not taken medication for it. Plan: - Defer initiation of ADHD medication due to . - Reassess the need for ADHD treatment after is discontinued. 4. Irritability and relationship stress: - Patient reports irritability and frustration with her , feeling overwhelmed with childcare and household responsibilities. Plan: - Encourage patient to continue discussing these issues with her therapist and explore potential solutions for better communication and division of responsibilities with her . 5.Dissociative episodes: - Patient reports two episodes of feeling disconnected from her infant and experiencing fear. Plan: - Encourage patient to discuss these episodes with her therapist to identify potential triggers and develop coping strategies. - Monitor for any recurrence or worsening of symptoms. Plan Of Treatment No Information Insurance Providers Payer Name Payer Address Payer Phone Subscriber Number Group Number Insured Name Patient Relationship to Insured Coverage Start Date Coverage End Date [facility] [address] [place] [address] [id number] SAMANTHA ENRIQUEZ Self - patient is the insured Medical (General) History Medical History History ICD Code Problems: Chronic post-traumatic stress disorder Excessive and frequent menstruation Generalized anxiety disorder Long-term drug therapy Mild recurrent major depression state Unintentional weight gain , Surgical History Surgery Date(Month/Year) Tonsilectomy/adenoids
--- OUTSIDE RECORDS SUMMARY | 2025-04-02 17:26 | XMS_ITS | Data Portability ---
Author Organization [facility] [employer], Main Office Address [address] [place] [id number] Assessment No assessment recorded. Plan of Treatment Reminders Order Date Submit Date Provider Last Modified By Organization Details Last Modified Time Details Appointments None recorded. Lab None recorded. Referral None recorded. Procedures None recorded. Surgeries None recorded. Imaging None recorded. Medication Orders prednisone 20 mg tablet 2023 [facility] [employer] [facility] #[id number], [address] [place] [address], [id number], 4 16:37:25 mometasone 0.1 % topical cream 2023 [facility] [employer] [facility] #02905, [address] [place] [address], [id number], 4 16:37:25 fluticasone propionate 50 mcg/actuati on nasal spray,suspe nsion 2023 [facility] [employer] #54167, [address] [place] [address], [id number], 4 16:37:25 triamcinolo ne acetonide 0.1 % topical cream 2023 [facility] [employer] Store #38879, [address] [place] [address], [id number], 18:42:30 Patient TargetsNo targets recorded. Patient Instructions Encounter Date Encounter Id Patient Instructions Last Modified By Organization Details Last Modified Time 07/31/2024 [id number] discussed taking prednisone twice a day for 5 days for Eustachian tube dysfunction. Use the mometasone cream once daily for eczema to the external auditory canal. Ordered fluticasone nasal spray for postnasal drainage, use 1 spray daily for management. [email or web address] Not available 07/31/2024 16:56:46 Reason for Referral None Reported. Results Created Date Observation Date Name Description Value Unit Range Abnormal Flag Note LastModifiedBy Organization Detail LastModifiedTime 02/18/2002/17/2023 CT, abdom en + pelvi s, w/ contr ast No observ ation record ed. [address] [facility] [address], [place], [address], 02/22/2023 15:01:57 02/18/2002/17/2023 XR, chest No observ ation record ed. [address] [facility] [address], [place], [address], 02/22/2023 15:02:43 Result Notes None recorded. Problems Name Problem SNOMED Code Status Onset Date Resolution Date Notes Provider Name and Address Organization Details Recorded Time Acne 22794700 Active 2021 Not Available [facility] 3 23:37:03 Bipolar disorder 20235495 Active 2020 Not Available [employer] 3 23:37:03 Asthma 201587544 Active 2020 Not Available [facility] 3 23:37:03 Mixed anxiety and depressive disorder 962103398 Active 2020 Not Available [employer] 3 23:37:03 Gastroesop hageal reflux disease 063222178 Active 2021 Not Available [employer] 3 23:37:03 Psoriasis of scalp 123772968 Active 2021 Not Available [employer] 3 23:37:03 Irritabili ty and anger 768681860 Active 2021 Not Available [facility] 3 23:37:03 Depressive disorder 39249531 Active 2020 Not Available [employer] 3 23:37:03 Migraine 25512549 Active 2020 Not Available [facility] 3 23:37:03 Obese 379278034 Active 2021 Not Available [facility] 3 23:37:03 Anxiety 98772788 Active 2020 Not Available [facility] 3 23:37:03 Wheezing 57719661 Active 2021 Not Available [facility] 3 23:37:03 Suicidal thoughts 4917517 Active 2020 Not Available [facility] 3 23:37:03 Pityriasis rosea 53173672 Active 2021 Not Available [facility] 3 23:37:04 Administra tion of influenza vaccine Active 2020 Not Available [facility] 3 23:37:04 Herpes labialis 2600947 Active 2023 Mayito Garcia MD [address], [address], [place], [address] , [facility] Done. [facility] [employer] [facility] 4 09:49:57 Contact dermatitis 00488306 Active 2023 ROGELIO Mcneil [address], [address], [place], [address] , [employer] [facility] [employer] [facility] 4 16:04:20 Migraine with aura 7627929 Active 2023 ROGELIO Mcneil [address], [address], [place], [address] , [employer] [facility] [employer] [facility] 4 15:49:25 Eczema of external auditory canal 80595841 Active 2023 ROGELIO Pimentel [address], [address], [place], [address] , [facility] Done. [facility] [employer] [facility] 4 16:35:52 Dysfunctio n of right eustachian tube 0052893664539 101 Active 2023 ROGELIO Pimentel [address], [address], [place], [address] , [facility] Done. [facility] [employer] 4 16:36:12 Posterior rhinorrhea 31518187 Active [address] [facility], [facility] [address], [place], [address] , [facility] Done. [facility] [employer] 4 16:36:37 Problem Notes None recorded. Procedures Surgical History Date Name Laterality Status Provider Name and Address Organization Details Recorded Time Tonsillectomy completed Not Available [facility] 12/16/2022 23:35:50 cauterization completed Debbie Raoncer [place] Done. [facility] [employer] 07/19/2024 09:58:04 Imaging Results None recorded. Procedure Notes None recorded. Medical Equipment None Reported. Allergies Allergen ID Allergen Name Allergen Category Reaction Reaction Severity Criticality Documentation Date Start Date Code Code System Note Provider Name and Address Organization Details Recorded Time 84014 Dilaudid medicatio n hallucina tions Not available Not available 12/16/2022 75255 3 RxNorm Not Available [facility] 3 23:38:11 12504 sumatript an medicatio n Not available Not available Not available 01/31/2024 96260 RxNorm Lisset Chavez RN [facility] [place] Done. [facility] [employer] 15:46:37 Medications Name Sig Start Date Stop Date Status Note LastModified by Organization Details LastModified Time status covid-19/f keenan a-b antigen tst TEST DIRECTED TODAY 07/31 completed Not Available Not Available Not Available doxycyclin e hyclate 100 mg capsule TAKE 1 CAPSULE BY MOUTH TWICE DAILY 07/31 completed Not Available Not Available Not Available Vitamin B-6 25 mg tablet TAKE 1 TABLET BY MOUTH EVERY 8 HOURS NEEDED 01/30 completed Not Available Not Available Not Available ketoconazo le 2 % shampoo 01/30 completed Not Available Not Available Not Available valacyclov ir 1 gram tablet TAKE 1 TABLET BY MOUTH TWICE DAILY FOR 5 DAYS NEEDED FOR COLD SORE active Not Available Not Available No t Available sumatripta n 100 mg tablet active Not Available Not Available Not Available Nystop 100,000 unit/gram topical powder APPLY TO AFFECTED AREAS BY TOPICAL ROUTE TWICE DAILY active Not Available Not Available No t Available ondansetro n HCl 4 mg tablet TAKE 1TABLET BY MOUTH EVERY 8 HOURS NEEDED FOR NAUSEA 01/30 completed Not Available Not Available Not Available prednisone 20 mg tablet TAKE 1 TABLET BY MOUTH TWICE DAILY FOR 5 DAYS active Not Available Not Available No t Available doxycyclin e hyclate 50 mg capsule Take 1 capsule every day by oral route. active Not Available Not Available No t Available sertraline 100 mg tablet TAKE 1 AND 1/2 TABLETS BY MOUTH DAILY active Not Available Not Available No t Available phentermin e 37.5 mg tablet TAKE 1 TABLET BY MOUTH EVERY DAY 09/03 completed Not Available Not Available Not Available sulfametho xazole 800 mg-trimeth oprim 160 mg tablet TAKE 1 TABLET BY MOUTH EVERY 12 HOURS UNTIL ALL TAKEN 05/13 completed Not Available Not Available Not Available triamcinol one acetonide 0.1 % topical cream APPLY THIN LAYER TOPICALLY TO THE AFFECTED AREA TWICE DAILY active Not Available Not Available No t Available ondansetro n 8 mg disintegra ting tablet Place 1 tablet twice a day by transling ual route as needed. 03/12 completed Not Available Not Available Not Available bupropion HCl 100 mg tablet TAKE 2 TABLETS BY MOUTH EVERY MORNING AND 1 TABLET BY MOUTH EVERY EVENING 10/22 completed Not Available Not Available Not Available amoxicilli n 875 mg tablet TAKE 1 TABLET BY MOUTH TWICE DAILY FOR 10 DAYS 07/18 completed Not Available Not Available Not Available famotidine 20 mg tablet TAKE 1 TABLET BY MOUTH TWICE DAILY active Not Available Not Available No t Available tretinoin 0.025 % topical gel APPLY TOPICALLY TO THE AFFECTED AREA EVERY DAY AT BEDTIME 09/03 completed Not Available Not Available Not Available Nortrel 0.5/35 (28) 0.5 mg-35 mcg tablet TAKE 1 TABLET BY MOUTH EVERY DAY 10/22 completed Not Available Not Available Not Available tazarotene 0.1 % topical cream APPLY TOPICALLY TO THE AFFECTED AREA DAILY AT NIGHT active Not Available Not Available No t Available prednisone 50 mg tablet TAKE 1 TABLET BY MOUTH DAILY 05/13 completed Not Available Not Available Not Available ursodiol 300 mg capsule TAKE 1 CAPSULE BY MOUTH TWICE DAILY 01/30 completed Not Available Not Available Not Available polymyxin B sulfate 10,000 unit-trime thoprim 1 mg/mL eye drops INSTILL 1 DROP INTO AFFECTED EYE(S) BY OPHTHALMI C ROUTE EVERY 6 HOURS for 5 days active Not Available Not Available No t Available Humulin N NPH U-100 Insulin (isophane susp) 100 unit/mL subcutaneo us 01/30 completed Not Available Not Available Not Available nystatin-t riamcinolo ne 100,000 unit/g-0.1 % topical cream APPLY TOPICALLY TO THE AFFECTED AREA TWICE DAILY IN THE MORNING AND IN THE EVENING FOR 14 DAYS active Not Available Not Available No t Available sertraline 25 mg tablet TAKE 1 TABLET BY MOUTH EVERY DAY 01/30 completed Not Available Not Available Not Available fluocinolo ne 0.01 % topical solution APPLY EXTERNALL Y TO THE AFFECTED AREA ON SCALP TWICE DAILY 01/30 completed Not Available Not Available Not Available ibuprofen 600 mg tablet 01/30 completed Not Available Not Available Not Available methylpred nisolone 4 mg tablets in a dose pack FOLLOW PACKAGE DIRECTION S 10/22 completed Not Available Not Available Not Available albuterol sulfate HFA 90 mcg/actuat ion aerosol inhaler Inhale 2 puffs every 4 hours by inhalatio n route as needed. 01/30 completed Not Available Not Available Not Available ketoconazo le 2 % topical cream APPLY TO RASH ON CHEST TWICE DAILY FOR 3 WEEKS NEEDED active Not Available Not Available No t Available fluticason e propionate 50 mcg/actuat ion nasal spray,susp ension SHAKE LIQUID AND USE 1 SPRAY IN EACH NOSTRIL EVERY DAY FOR 10 DAYS active Not Available Not Available No t Available sertraline 50 mg tablet TAKE 1 TABLET BY MOUTH DAILY ALONG WITH 100MG active Not Available Not Available No t Available mometasone 0.1 % topical cream APPLY A THIN LAYER TO THE AFFECTED AREA DAILY active Not Available Not Available No t Available Microlet Lancet TEST FOUR TIMES DAILY DIRECTED 01/30 completed Not Available Not Available Not Available metoclopra mide 10 mg tablet 07/18 completed Not Available Not Available Not Available clindamyci n phosphate 1 % topical solution 09/03 completed Not Available Not Available Not Available erythromyc in with ethanol 2 % topical gel APPLY TO FACE DAILY active Not Available Not Available No t Available aripiprazo le 10 mg tablet TAKE 1 TABLET BY MOUTH EVERY DAY 05/13 completed Not Available Not Available Not Available azelaic acid 15 % topical gel APPLY TO AFFECTED AREAS OF FACE ONCE DAILY 01/30 completed Not Available Not Available Not Available Microgesti n 1.530 (21) 1.5 mg-30 mcg tablet TAKE 1 TABLET BY MOUTH DAILY 03/12 completed Not Available Not Available Not Available aripiprazo le 5 mg tablet TAKE 1 TABLET BY MOUTH EVERY DAY 11/27 completed Not Available Not Available Not Available bupropion HCl XL 300 mg 24 hr tablet, extended release TAKE 1 TABLET BY MOUTH EVERY DAY 01/30 completed torrey almeida Not Available Not Available Not Available bupropion HCl XL 150 mg 24 hr tablet, extended release TAKE 1 TABLET BY MOUTH DAILY IN THE MORNING active Not Available Not Available No t Available nitrofuran toin monohydrat e/macrocry stals 100 mg capsule TAKE 1 CAPSULE BY MOUTH EVERY 12 HOURS FOR 7 DAYS 01/30 completed Not Available Not Available Not Available aripiprazo le 2 mg tablet TAKE 1 TABLET BY MOUTH EVERY DAY 05/13 completed Not Available Not Available Not Available Contour Next Test Strips USE TO TEST BLOOD SUGAR 4 TIMES DAILY DIRECTED 01/30 completed Not Available Not Available Not Available TRUEplus Insulin 0.3 mL 29 gauge x 1/2 syringe USE DIRECTED 01/30 completed Not Available Not Available Not Available doxycyclin e hyclate 50 mg tablet TAKE 1 TABLET BY MOUTH EVERY DAY 11/27 completed Not Available Not Available Not Available Contour Next One Meter USE DIRECTED TO TEST BLOOD SUGAR 4 TIMES DAILY 01/30 completed Not Available Not Available Not Available Slynd 4 mg (28) tablet 1 tab po daily 05/13 completed Not Available Not Available Not Available Ubrelvy 100 mg tablet active Not Available Not Available Not Available Skyrizi 150 mg/mL subcutaneo us pen injector NOT STARTED OF 07/31/24 active Not Available Not Available No t Available Vitals Date Recorded Body mass index (BMI) Body height Oxygen saturation Oxygen saturation in Arterial blood by Pulse oximetry Heart rate Respiratory rate Body temperature Body weight Systolic blood pressure Diastolic blood pressure Provider Name and Address Organization Details Last Updated DateTime 3 35.1 kg/m2 154.94 cm 98 % 98 % 120 /min 16 /min 98 [degF] 67311.1 8 g 108 mm[Hg] 82 mm[Hg] Not Available [facility] 3 23:36:38 Date Recorded Body mass index (BMI) Body height Oxygen saturation Oxygen saturation in Arterial blood by Pulse oximetry Heart rate Respiratory rate Body temperature Body weight Systolic blood pressure Diastolic blood pressure Provider Name and Address Organization Details Last Updated DateTime 3 35.1 kg/m2 154.94 cm 99 % 99 % 94 /min 16 /min 98.4 [degF] 84764.1 g 127 mm[Hg] 73 mm[Hg] Not Available [facility] 3 23:36:38 Date Recorded Body height Body mass index (BMI) Body weight Body temperature Heart rate Respiratory rate Oxygen saturation Oxygen saturation in Arterial blood by Pulse oximetry Systolic blood pressure Diastolic blood pressure Provider Name and Address Organization Details Last Updated DateTime 4 154.94 cm 32.5 kg/m2 21659.2 9 g 97.5 [degF] 81 /min 20 /min 97 % 97 % 130 mm[Hg] 72 mm[Hg] Lisset Chavez RN [facility] [employer] 4 15:49:40 Date Recorded Body height Body mass index (BMI) Body weight Body temperature Heart rate Oxygen saturation Oxygen saturation in Arterial blood by Pulse oximetry Systolic blood pressure Diastolic blood pressure Provider Name and Address Organization Details Last Updated DateTime 3 154.94 cm 36.2 kg/m2 98884.9 4 g 97.6 [degF] 97 /min 93 % 93 % 128 mm[Hg] 91 mm[Hg] Marleni Flood MA [facility] [employer] 3 11:15:26 Date Recorded Body height Body mass index (BMI) Body weight Body temperature Provider Name and Address Organization Details Last Updated DateTime 07/31/2024 154.94 cm 33 kg/m2 97372.23 g 97.7 [degF] Nasra Cuevas RN [facility] [employer] [facility] 07/31/2024 16:00:11 Social History Question Answer Notes LastModified by Organization Details LastModified Time Tobacco Smoking Status Never Smoker Nimisha gimenez, [facility] 05/13/2023 11:05:35 Do You Have An Advance Directive? No Information not available 01/31/2024 If You Are , What Was Your Level Of Alcohol Consumption Prior To ? None Information not available 05/13/2023 Is Blood Transfusion Acceptable In An Emergency? Yes Information not available 01/31/2024 What Is Your Level Of Caffeine Consumption? Occasional [id number] Information not available 12/16/2022 What Is Your Code Status? Full Code Information not available 01/31/2024 In The 14 Days Before Symptom Onset, Have You Had Close Contact With A Laboratory-confi rmed COVID-19 While That Case Was Ill? No Information not available 05/13/2023 In The 14 Days Before Symptom Onset, Have You Had Close Contact With A Person Who Is Under Investigation For COVID-19 While That Person Was Ill? No Information not available 05/13/2023 What Type Of Diet Are You Following? REGULAR [id number] Information not available 12/16/2022 What Is The Highest Grade Or Level Of School You Have Completed Or The Highest Degree You Have Received? [id number] Information not available 05/13/2023 Have There Been Any Changes To Your Family Or Social Situation? Yes Moved To [facility] Information not available 01/31/2024 Are There Any Guns Present In Your Home? No Information not available 01/31/2024 Do You Use Insect Repellent Routinely? Yes Information not available 01/31/2024 Where Do You Live? SingleLevelHouse Information not available 01/31/2024 Do You Have A Medical Power Of Beef Skinner? No Information not available 01/31/2024 How Many Children Do You Have? 1 Information not available 01/31/2024 Do You Have Any Pets? Yes Information not available 05/13/2023 What Is Your Relationship Status? Information not available 01/31/2024 Do You Use Your Seat Belt Or Car Seat Routinely? Yes Information not available 05/13/2023 Do You Have Smoke And Carbon Monoxide Detectors In Your Home? Yes Information not available 05/13/2023 Are You Passively Exposed To Smoke? No Information not available 01/31/2024 Are There Any Smokers In Your House? Yes Information not available 05/13/2023 Do You Participate In Social Media? Yes Information not available 05/13/2023 Do You Use Sunscreen Routinely? Yes Information not available 01/31/2024 Has Tobacco Cessation Counseling Been Provided? No Information not available 05/13/2023 Have You Recently Traveled Abroad? No Information not available 05/13/2023 Are You Currently In School? No Information not available 05/13/2023 Do You Have Any Dietary Restrictions? No Information not available 05/13/2023 Sex: Female Functional Status Question Answer Note LastModified by Organizat ion Details LastModified Time Do you or have you ever used any other forms of tobacco or nicotine? No Information not available 05/13/2023 What is your level of alcohol consumption? 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 Occasional [id number] Information not available 12/16/2022 Mental Status Question Answer Note LastModified by Organization D etails LastModified Time Do you feel stressed (tense, restless, nervous, or anxious, or unable to sleep at night)? [id number] Information not available 05/13/2023 Family History Relationship Description Onset Age of this Age Resolved Age Notes LastModified by Organization Details LastModified Time Mother Schizoaffect ivette disorder [email or web address] Not available 15:48:53 Mother Irritable bowel syndrome [email or web address] Not available 07/18 15:48:53 Mother Hydrocephalu s 4th and 5th ventri jermaine in head is fused togeth er. [email or web address] Not available 07/31/2024 15:48:53 Mother Depressive disorder [id number] Not available 12/16/2022 23:35:52 Maternal Grandmother Suicide [email or web address] Not available 15:48:53 Maternal Grandmother Congestive heart failure [email or web address] Not available 07/18 15:48:53 Maternal Grandmother Malignant neoplasm of uterus [email or web address] Not available 07/18 15:48:53 Maternal Grandmother Diabetes mellitus [id number] Not available 12/16/2022 23:35:52 Maternal Grandmother Hypertensive disorder [id number] Not available 12/16/2022 23:35:52 Brother Depressive disorder [id number] Not available 12/16/2022 23:35:52 Maternal Grandfather Carcinoma of prostate [email or web address] Not available 07/18 15:48:53 Maternal Grandfather Malignant tumor of colon [id number] Not available 07/18 15:48:53 Brother Myringotomy and insertion of tympanic ventilation tube [email or web address] Not available 2023 15:57:16 Notes:[facility] Medical History Condition Response BLINDNESS N RHEUMATIC FEVER N KIDNEY STONES N BLADDER PROBLEMS N MRSA N OTHER # 1 N POLIO N LUNG DISEASE/DISORDER N HISTORY OF DRUG ABUSE N RADIATION / CHEMOTHERAPY N COPD N Other # 2 N BLOOD DISEASES N SURGERY N EAR OR HEARING PROBLEMS N MUMPS N SHINGLES N BOWEL PROBLEMS N FEMALE PROBLEMS / INFECTIONS N DEPRESSION (INCLUDING POST ) N STROKE/TIA N THYROID DISEASE N ULCERS N BENIGN PROSTATIC HYPERPLASIA N MEASLES N CERVICALGIA N HYPOTENSION N TB SKIN TEST N MYOCARDIAL INFARCTION N PARAPELGIA N OBESITY N GERD/NAUSEA N ANEURYSM N URINARY/BLADDER/KIDNEY PROBLEMS N CORONARY ARTERY DISEASE (CAD) N MENIERE'S DISEASE N ADDICTION CONCERNS N ENDOMETRIOSIS N USE OF BLOOD THINNERS N SKIN PROBLEMS N EMPHYSEMA N GASTROINTESTINAL DISORDER N MUSCLE,JOINT OR BONE PROBLEMS N GASTROINTESTINAL BLEEDING N BLOOD CLOTS N ASTHMA N CATARACTS N ERECTILE DYSFUNCTION N GI PROBLEMS N CHF N Low Testosterone N NEUROPATHY N INFERTILITY N AIDS/HIV N FRACTURES N CHEMOTHERAPY / RADIATION N VISION/EYE PROBLEMS N LIVER DISEASE N MALE HYPOGONADISM N HYPERTENSION N TOURETTE'S N ANXIETY DISORDER N BLOOD TRANSFUSION N ANEMIA/BLOOD DISORDER N CHRONIC EAR INFECTIONS N BRONCHITIS N TUBERCULOSIS N GLAUCOMA N FOOT PROBLEM N DIVERTICULITIS N CHICKENPOX N SLEEP APNEA N ALLERGIES/HAYFEVER N INFECTIOUS DISEASE N HEART ARRHYTHMIA N PROSTATE N INSOMNIA N HIGH CHOLESTEROL / HYPERLIPIDEMIA N HYPERTHYROIDISM N EYE PROBLEMS N EATING DISORDER N EDEMA N CHRONIC PAIN SYNDROME N CONSTIPATION N CAROTID BLOCKAGE N BACK / NECK PROBLEMS N HAVE YOU BEEN HOSPITALIZED OR SEEN IN [facility] ER IN THE PAST YEAR ? N ATHEROSCLEROSIS N BREAST PROBLEMS N DIALYSIS N ECZEMA N FIBROMYALGIA N OSTEOPOROSIS N ARTHRITIS N NO SIGNIFICANT PAST MEDICAL HISTORY N APPENDICITIS N DIABETES, TYPE N BAD TEETH N HEARTBURN / REFLUX N ADD/ADHD N AUTISM SPECTRUM DISORDER (ASD) N HEPATITIS / LIVER DISEASE N PULMONARY DISEASE N GOUT N SLEEP DISORDER N ALZHEIMER'S DISEASE N PAIN N HERPES N DEMENTIA N HEADACHES/MIGRAINES N SEIZURES/EPILEPSY N VASCULAR DISEASE N PACEMAKER N DIZZINESS N HEART DISEASE/HEART PROBLEMS N KIDNEY DISEASE N DEVELOPMENTAL OR BEHAVIORAL DISORDERS N MULTIPLE SCLEROSIS N SCARLET FEVER N MENTAL DISORDER/ILLNESS N CARDIAC ARRHYTHMIA N CANCER: SPECIFY N PNEUMONIA N ATRIAL FIBRILLATION N Gall Stones N PULMONARY EMBOLISM N AUTOIMMUNE DISEASE N Gynecological History Statement/Question Response Abnormal Pap N Flow Moderate Date of LMP 08/12/2022 Dislike of Light during Menstrual Headac he N STIs/STDs N Date of Last Pap 06/02/2022 Duration of Flow (days) 5 Current Control Method BCPs Breast Problems no How many live births 0 Sexually Active? Y Weight gain N Menses Monthly Y Discharge no Obstetrics History GPAL:G 0 P 0 0 0 0 Immunizations Vaccine Type Date Status Note Provider Nam e and Address Organization Details Recorded Time COVID-19 IV Non-US Vaccine (COVAXIN) 05/29/2021 completed Not Available [facility] 3 23:38:08 COVID-19 IV Non-US Vaccine (COVAXIN) 05/08/2021 completed Not Available [facility] 3 23:38:08 Influenza, split virus, quadrivalent, PF 07/23/2022 completed Not Available [facility] 3 23:38:08 Influenza, split virus, quadrivalent, PF 07/18/2021 completed Not Available [facility] 3 23:38:08 Past Encounters Encounter ID Performer Location Encounter Start Date Encounter Closed Date Diagnosis/Indication Diagnosis SNOMED-CT Code Diagnosis ICD10 Code Diagnosis Note [id number] Mayito Garcia MD [facility] [address] [address] 07/18/2021 00:00:00 07/18/2021 09:56:[id number] [facility] [address] [place] [address] 08/22/2021 00:00:00 08/22/2021 17:56:[id number] [facility] [address] [place] [address] 09/26/2021 00:00:00 09/26/2021 14:26:[id number] [facility] [facility] [address] [place] [address] 11/27/2021 00:00:00 12/19/2021 13:46:[id number] [facility] [address] [place] [address] 03/12/2022 00:00:00 03/12/2022 14:08:[id number] [facility] [address] [place] [address] 04/09/2022 00:00:00 04/09/2022 09:17:16 [id number] [facility] [address] [place] [address] 05/05/2022 00:00:00 05/05/2022 11:31:12 [id number] [facility] [address] [place] [address] 07/23/2022 00:00:00 07/23/2022 10:28:[id number] [facility] [address] [place] [address] 09/03/2022 00:00:00 09/03/2022 10:50:[id number] [facility] [address] [place] [address] 10/22/2022 00:00:00 10/22/2022 17:31:12 [id number] Mayito Garcia MD [address] [address] 11/05/2022 00:00:00 11/05/2022 15:51:34 [id number] Lisset Maravilla NP [address] [address] 05/13/2023 11:03:44 05/13/2023 12:10:49 Anxiety [id number] F41.9 seeing Torrey gustafson. Bipolar disorder [id number] 4 F31.9 Off abilify Gastroesop hageal reflux disease [id number] K21.9 stable diet mods Psoriasis of scalp [id number] L40.9 seeing derm later today. [id number] Mayito Garcia MD [address] [address] 01/31/2024 15:39:08 01/31/2024 16:14:59 Contact dermatitis [id number] L25.9 [id number] [facility] [address] [place] [address] 07/31/2024 15:46:04 07/31/2024 16:57:17 Eczema of external auditory canal [id number] H60.549 Dysfunctio n of right eustachian tube [id number] H69.91 Posterior rhinorrhea [phone] [id number] R09.82 Health Concerns Section Related Observation LastModified by Organization Detai ls LastModified Time None Recorded Concern Status LastModified by Organization Details LastModified Time None Recorded Advance Directives Directive N: Payers Insurance Date Sequence Insurance Name Policy Number Policy Leung Covered Member ID Leung Member ID Guarantor Name 08/07/2024 1 [place] [id number] Elizabeth Mayra Barr [id number] Elizabeth Land Notes Date Note Type Note Provider Name and Address Organization Details Recorded Time 05/13/2023 text/html Here for 6 mo fu . Found out she is pregnent, 4 weeks and 5 days. Has appt with ob at 6 weeks per phone and 8 weeks in office. [place], [place]. Pt is . This is first baby.Has been on famotidine still, but stopped Has appt with Psych early may with Torrey Gustafson. Lisset Maravilla NP [address], [place], [address], [facility] Done. [facility] Imagry 05/13/2023 12:09:57 01/31/2024 text/html Elizabeth Land is a 28 year old female patient here to establish care. She was previously under the care of Lisset Maravilla DNP. She had gestational diabetes. Her blood sugars have been under control without medication since she has delivered. She has a history of acid reflex. This has resolved since she has been post . She has famotidine PRN. She has sertraline 200 mg PO. She goes to therapy q 2 weeks and sees psych tomorrow. 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 for cold sores. She has not had an outbreak in a few months. She is a pumping, lactating mother. She has noted an itchy rash around bilateral areola. We discussed washing breast pump parts between each use and sanitizing daily. We will try triamcinolone cream. Advised to wash the nipple and areola before pumping. She will call in if this does not resolve. Flu shot: OVID: 04/2021, SV: 10/2023Tdap: 10/2023WWE: unsure, has OB on 03/01/2024 She had a baby on 01/05/2024 ROGELIO Mcneil [address], [place], [address], [employer] 01/31/2024 16:51:54 07/31/2024 text/html This patient presents with a past medical history significant for asthma. She presents with persistent and constant itching to her ears. She also states that when she yawns this causes significant otalgia. She states this has been going on for approximately a year. She also notes that in the morning she is coughing up phlegm in which it is getting stuck on her uvula after she brushes her teeth. She denies any sinus congestion or pressure. She denies use of any impf-yqk-wuiikep medications for her symptom management due to caution as she is currently . Nasra Roy, PATIENT ACCOUNT REPRESENTATIVE [address] [facility], [facility] [address], [place], [address], [place] [facility] [place] [facility] 07/31/2024 16:56:50 OBGyn Episode No OBEpisode recorded.
[2025-04-02 17:29] VITALS: BP 116/70; PULSE 94; RESP 16; TEMP 36.4; O2SAT 100
[2025-04-02] MEDS: KETOROLAC (*BKC) 60 MG/2 ML VIAL IM (17:49)
--- NOTE | 2025-04-02 17:49 | ED_ITS ---
HPI - URI/Sore Throat General Chief Complaint: Upper Respiratory Infection Stated Complaint: migraine,cough Time Seen by Provider: 04/02/25 17:40 Source: patient and RN notes reviewed Mode of arrival: ambulatory Limitations: no limitations History of Present Illness HPI Narrative: 29-year-old female presents Express Care complaining of upper respiratory symptoms for last month. Patient said she started which she believed was allergy symptoms started with a cough, congestion, runny nose. Since then his symptoms have progressively worsened. She said over the weekend they have gotten much worse. Patient reports having a productive mucopurulent cough, headaches, congestion, dyspnea with exertion, malaise. Patient denies any chest pain, fevers, body aches, chills, shortness of breath at rest, orthopnea, h emoptysis, sore throat, or any other upper respiratory symptom. Patient denies any recent surgeries. Patient has a history of migraines and asthma and uses inhaler as needed. Patient is use your inhaler for shortness of breath with minimal relief. Patient does take oral contraceptives as control that are progesterone based. Patient has been using her as needed migraine medication with no relief for her headaches. Patient has not taken anything else wvwe-ksy-cqbrpco help with symptoms. Patient has not taken anything today for her migraine rates her headache a 04/26. Related Data Home Medications ?Medication ?Instructions ?Recorded ?Confirmed ?Last Taken ?Type desvenlafaxine succinate 50 mg 50 mg PO DAILY 02/14/25 Unknown History tablet,extended release 24 hr (Pristiq) cefuroxime axetil 500 mg tablet mg 04/02/25 Unknown History drospirenone (contraceptive) 4 mg 04/02/25 Unknown History (28) tablet (Slynd) ubrogepant 100 mg tablet (Ubrelvy) mg 04/02/25 Unknown History Allergies Allergy/AdvReac Type Severity Reaction Status Date / Time hydromorphone (From Dilaudid) AdvReac Anxiety Verified 04/02/25 17:31 sumatriptan (From Imitrex) AdvReac Anxiety Verified 04/02/25 17:31 Review of Systems Review of Systems: CONSTITUTIONAL: Denies fever, chills, body aches, or sweats. Positive for malaise EYES: Denies visual changes, redness, or discharge. ENT: Denies rhinorrhea, sore throat, or otalgia. Positive for congestion. CARDIOVASCULAR: Denies chest pain, chest pressure, dizziness, lightheadedness, syncope palpitations, or edema. RESPIRATORY: Positive for cough and dyspnea with exertion. Negative for orthopnea, wheezing, or dyspnea at rest GASTROINTESTINAL: Denies abdominal pain, nausea, vomiting, or diarrhea. GENITOURINARY: Denies dysuria or hematuria. SKIN: Denies rash or itching. MUSCULOSKELETAL: Denies back pain, joint pain, or myalgia. NEUROLOGIC: Denies headache, numbness, or weakness. PSYCHIATRIC: Denies anxiety or depression. All other systems reviewed are negative, except as documented in HPI. [facility] Past Medical History Medical History Irritable bowel syndrome (IBS) Asthma Anxiety seeing psych Anemia Migraine Surgical History Surgical History No pertinent past surgical history Family History Family History Mother Cancer Depression Acute myocardial infarction Sibling Depression Grandparent Cancer Diabetes mellitus Hypertension Social History Social History Social History: 08/10/24 Very confident with medical forms Smoking status: Former smoker Tobacco type: cigarettes Alcohol intake: current Drinks per week: 4 Alcohol use details: Socially Substance use: never Substance use type: does not use Do You Feel Safe in your Home?: Yes Lack of Transportation: No Lack of Food: Never True Current Housing: I Have Housing Concerned About Future Housing: No Difficulty Paying Gas/Electric Bills: No Difficulty Paying for Meds: No Currently Unemployed: No Education: High School Diploma/GED Difficulty w/ Childcare or Family Care: No Living arrangements: with family Spiritual care concerns: No Agree to blood products: Yes Comments At the time of my signature, I reviewed and agree with the nursing past medical, surgical, social, and family history. There is no relevant family history pertinent to the patient complaint. Exam Narrative: GENERAL: This is a well-nourished, well-developed adult, in no apparent distress. They are non ill-appearing, nontoxic appearing. HEAD: normocephalic, atraumatic. EYES: Sclera clear/white. Conjunctiva normal. Vision is grossly intact. Extraocular movements intact EARS: External ears normal, auditory canals clear and without drainage, TMs normal without perforation. Hearing grossly intact. NOSE: External nose normal with no obvious nasal discharge, nasal turbinates erythemic without swelling, no rhinorrhea. THROAT: Mucous membranes moist, posterior pharynx clear, without erythema or swelling. Uvula midline. Postnasal drip present NECK: Neck supple, non-tender without lymphadenopathy, masses or thyromegaly. CARDIOVASCULAR: Regular rate and rhythm without murmurs, gallops, or rubs. RESPIRATORY: Lung sounds are diminished. Breath sounds equal bilaterally. No wheezes, rales, or rhonchi. Respiratory rate normal, respiratory effort nonlabored, no respiratory distress. No accessory muscle use or retractions. Patient can speak in full sentences. SKIN: warm, Dry, intact with no suspicious lesions or rash, good texture and turgor. NEURO: awake, alert, and oriented to person, place and time. There were no obvious focal neurologic abnormalities. EXTREMITIES: No joint tenderness, effusion, or edema noted. BACK: Nontender without deformity. Course Course Emergency Course: Portions of this record may have been created with voice recognition software Level of Care: Express Care Visit Vital Signs Vital signs: Vital Signs Temperature 97.5 F L 04/02/25 17:29 Pulse Rate 94 04/02/25 17:29 Respiratory Rate 16 04/02/25 17:29 Blood Pressure 116/70 04/02/25 17:29 Pulse Oximetry 100 04/02/25 17:29 Oxygen Delivery Room Air 04/02/25 17:29 Temperature 97.5 F L 04/02/25 17:29 Pulse Rate 94 04/02/25 17:29 Respiratory Rate 16 04/02/25 17:29 Blood Pressure 116/70 04/02/25 17:29 Pulse Oximetry 100 04/02/25 17:29 Oxygen Delivery Room Air 04/02/25 17:29 Reviewed MDM - URI/Sore Throat MDM Narrative Medical decision making narrative: Patient given Toradol shot for her headache. Patient states headache is slightly better. Wells score of 0, low risk for DVT or PE. Patient is not tachycardic and oxygen saturations are at 100%. Chest x-ray showed no evidence of acute pneumonia or acute findings. Likely given the patient's length of symptoms she has a purulent bronchitis. Will treat with doxycycline. Patient is in no respiratory distress offer nebulizer treatment patient says she feels fine and does not need treatment. Discussed physical exam findings. Advised supportive measures and signs/symptoms to go to the ER. Pt is appropriate for outpt treatment and f/u. Differential Diagnosis Differential diagnosis: Likely viral infection, bronchitis and other (Pneumonia,, pulmonary embolism, asthma exacerbation) Critical Care Time Critical Care Time Critical Care Time: No Discharge Plan Discharge Clinical Impression: Acute purulent bronchitis Patient Disposition: Home Condition: Stable Instructions: Antibiotic Form, Acute Bronchitis (ED) Additional Instructions: Chest x-ray is negative for any pneumonia or acute findings. Please take doxycycline as directed. Please wear sunscreen if you are going to be outside while taking doxycycline. Continue take Tylenol ibuprofen as needed for pain or fevers. Continue take your inhaler as needed for shortness of breath or wheezing. Follow-up with PCP in 3-5 days. You develop worsening shortness of breath, chest pain, unable to talk in full sentences, fevers higher than 103 F, weakness, or any other concerns please go to the ER immediately. Patient Language: [place] Prescriptions: New doxycycline monohydrate 100 mg capsule 100 mg PO BID 7 Days Qty: 14 0RF No Action Ubrelvy 100 mg tablet Slynd 4 mg (28) tablet cefuroxime axetil 500 mg tablet desvenlafaxine succinate [Pristiq] 50 mg tablet extended release 24 hr 50 mg PO DAILY Airsupra 90-80 mcg/actuation HFA aerosol inhaler 2 inh inhalation ONCE Qty: 32.1 2RF Rx Instructions: as a single dose; may repeat up to 6 doses per day (12 inhalations) famotidine 20 mg tablet 20 mg PO DAILY Qty: 90 3RF Follow-up/Referrals: Lisset Maravilla APRN [Primary Care Provider] - Time of Disposition: 18:08
== END 2025-04-02 18:13 | disposition home or self-care (01) ==
PROVIDERS: PCP Nurse Practitioner Family
DX: J20.9 Acute bronchitis, unspecified (principal); Z87.891 Personal history of nicotine dependence; J45.909 Unspecified asthma, uncomplicated
CPT/HCPCS: 71046; 99213; G0463; J1885

== ENCOUNTER 2025-07-06 14:41 | Emergency (ER) | payer BC, SELFPAY ==
--- OUTSIDE RECORDS SUMMARY | 2025-07-06 14:47 | XMS_ITS | Clinical Summary ---
Author Organization [facility] Address [address] [place] [id number] Care Team Providers Care Foil Spinner Name Role Phone Mayte Koch [facility] Primary Care Provider + [phone] Allergies Active Allergy Reactions Criticality Noted Date [...] Active Problems Problem Noted Date Diagnosed Date ([facility] 01/05/2024 Gestational diabetes ([facility]) 12/06/2023 Family History Medical History [...] drink = 0.6 oz pur e alcohol) [facility] Utilities Answer Date Recorded In [...] week 01/05/2024 How often do you attend [facility] or congregation services? Patient declined 01/05/2024 Do you belong to any clubs o r organizations such as mandaeism groups, unions, fraternal or athletic groups, or [...] and heating? Not hard at all 01/05/2024 [facility] [place] [facility] - Occupational Stress [...] place to sleep or slept in a long-term (including now)? No 01/05/2024 Comments No Sex [...] of 3 - 19+ 3-dose series) 2016 HPV Vaccines (1 - 3-dose SCD M series) 2024 COVID-19 Vaccine ( - 2023-2 5 season) 2025 DTaP, Tdap and Td Vaccines ( 2 - Td or Tdap) 11/13/2033 11/13/2023 Hepatitis C Completed 06/10/2023 Meningococcal B Vaccine Aged Out No l [...] Most Recently Relevant to Health Maintenance Insurance [facility] Advance Directives * Full Code (Latest Code [...] 5:57 PM 12/19/2023 11:51 PM Care Teams Foil Spinner Relationship Specialty Start Date End Date Mayte Koch CNM [address] [place] [address] PCP - General CERTIFIED NURSE MEMBER SERVICE SPECIALIST 11/16/23
[2025-07-06 14:54] VITALS: BP 105/71; PULSE 76; RESP 16; TEMP 36.6; O2SAT 100
--- NOTE | 2025-07-06 14:57 | ED.EAR ---
HPI - Ear Problem General Chief complaint: Ear Stated complaint: poss ear infection Time Seen by Provider: 07/06/25 14:57 Source: RN notes reviewed and old records reviewed Mode of arrival: ambulatory Limitations: no limitations History of Present Illness HPI Narrative: 29 year old female who presents to [facility] care with complaints of having sinus congestion with drainage , allergy symptoms for the past 2 weeks and she has been taking Sudafed for her symptoms. Patient reports that on Wednesday her right ear started hurting and she feels stuffy in her sinuses. Patient reports that she did take Tylenol on Wednesday for headache and has been taking the Sudafed daily without improvement in her symptoms MD Complaint: ear pain and other (right ear feels clogged, stuffy runny nose) Location: right ear Duration: constant Severity: moderate Treatment prior to arrival: other (sudafed took Tylenol for headache on Wednesday) Related Data Home Medications ?Medication ?Instructions ?Recorded ?Confirmed ?Last Taken ?Type drospirenone (contraceptive) 4 mg 04/02/25 05/21/25 Unknown History (28) tablet (Slynd) ubrogepant 100 mg tablet (Ubrelvy) mg 04/02/25 05/21/25 Unknown History desvenlafaxine succinate 50 mg 100 mg PO DAILY 04/24/25 07/06/25 Unknown History tablet,extended release 24 hr (Pristiq) lisdexamfetamine 40 mg capsule 40 mg PO DAILY 04/24/25 07/06/25 Unknown History (Vyvanse) Allergies Allergy/AdvReac Type Severity Reaction Status Date / Time hydromorphone (From Dilaudid) AdvReac Intermediate Anxiety Verified 07/06/25 14:45 sumatriptan (From Imitrex) AdvReac Intermediate Anxiety Verified 07/06/25 14:45 Review of Systems Review of Systems: CONSTITUTIONAL: Denies malaise, chills, sweats, or fever. EYES: Denies visual changes, redness, or discharge. ENT: Reports rhinorrhea, congestion, sinus pain,right otalgia and no sore throat. CARDIOVASCULAR: Denies chest pain, palpitations, or edema. RESPIRATORY: Reports no cough.? Denies dyspnea. GASTROINTESTINAL: Denies abdominal pain, nausea, vomiting, diarrhea SKIN: Denies rash or itching. MUSCULOSKELETAL: Denies myalgia. NEUROLOGIC: Reports headache. All systems reviewed & are unremarkable except as noted in HPI and below PMFSH Past Medical History Medical History Irritable bowel syndrome (IBS) Asthma Anxiety seeing psych Anemia Migraine Surgical History Surgical History No pertinent past surgical history Family History Family History Mother Cancer Depression Acute myocardial infarction Sibling Depression Grandparent Cancer Diabetes mellitus Hypertension Social History Social History Social History: 04/24/25 Very confident with medical forms Smoking status: Former smoker Tobacco type: cigarettes Alcohol intake: current Drinks per week: 4 Alcohol use details: Socially Substance use: never Substance use type: does not use Do You Feel Safe in your Home?: Yes Lack of Transportation: No Lack of Food: Never True Current Housing: I Have Housing Concerned About Future Housing: No Difficulty Paying Gas/Electric Bills: YES Difficulty Paying for Meds: YES Currently Unemployed: No Education: High School Diploma/GED Difficulty w/ Childcare or Family Care: No Living arrangements: with family Spiritual care concerns: No Agree to blood products: Yes Comments At time of signature, agree with nursing past medical, surgical, social and family history. There is no relevant family history pertinent to the presenting complaint Exam Narrative: GENERAL: Well-appearing, well-nourished, and in no acute distress. HEAD: Normocephalic EYES: PERRLA, conjunctivae clear ENT: Nares clear, turbinates edematous and erythematous, clear discharge, sinus pressure, headache. Mucous membranes moist.Right TM red and bulging, Left TM pearly lee with dull light reflex ; no tragal tenderness. Oropharynx erythematous without lesions. Tonsils not enlarged and without exudate, no drooling, no hoarseness, no trismus, uvula midline.post nasal drainage noted NECK: Supple. No lymphadenopathy CHEST: Clear to auscultation, breath sounds equal. No wheezing, rhonchi, rales, or stridor. No respiratory distress, speaks in full sentences.no acute cough SAO2 100% on room air HEART: Regular rate and rhythm. No murmur heard. SKIN: Warm, dry, no rash. NEURO: Alert and oriented x3. PSYCH: Normal mood and affect Course Course Emergency Course: Patient is aware of diagnosis, understands and agrees to treatment plan.? Anticipatory guidance given.? Patient agrees to follow-up as directed and is aware of reasons to seek care at the emergency department. Portions of this record may have been created with voice recognition software Level of Care: Express Care Visit Vital Signs Vital signs: Vital Signs Temperature 36.6 C 07/06/25 14:54 Pulse Rate 76 07/06/25 14:54 Respiratory Rate 16 07/06/25 14:54 Blood Pressure 105/71 07/06/25 14:54 Pulse Oximetry 07/06/25 14:54 Oxygen Delivery Room Air 07/06/25 14:54 Temperature 36.6 C 07/06/25 14:54 Pulse Rate 76 07/06/25 14:54 Respiratory Rate 16 07/06/25 14:54 Blood Pressure 105/71 07/06/25 14:54 Pulse Oximetry 07/06/25 14:54 Oxygen Delivery Room Air 07/06/25 14:54 Reviewed Medical Decision Making Differential Diagnosis Differential Diagnosis: URI, otitis media, sinusitis, viral infection Medical Records Medical records reviewed: Yes I reviewed the external patient's medical records. Vital Signs Vital Signs: Vital Signs Temperature 36.6 C 07/06/25 14:54 Pulse Rate 76 07/06/25 14:54 Respiratory Rate 16 07/06/25 14:54 Blood Pressure 105/71 07/06/25 14:54 Pulse Oximetry 07/06/25 14:54 Oxygen Delivery Room Air 07/06/25 14:54 Temperature 36.6 C 07/06/25 14:54 Pulse Rate 76 07/06/25 14:54 Respiratory Rate 16 07/06/25 14:54 Blood Pressure 105/71 07/06/25 14:54 Pulse Oximetry 07/06/25 14:54 Oxygen Delivery Room Air 07/06/25 14:54 reviewed Critical Care Time Critical Care Time Critical Care Time: No Discharge Plan Discharge Clinical Impression: Acute otitis media, right Patient Disposition: Home Condition: Stable Instructions: Antibiotic Form, Ear Infection (GEN) Additional Instructions: Increase fluids especially juices and water Vlrb-uor-jmtbfhe cough and cold medicine of your choice for your symptoms Zyrtec Claritin or Pauly and include plain Sudafed Tylenol or ibuprofen for any fever pain nasal saline p.r.n. and may use Flonase daily heat to the face 20-30 minutes 4-6 times a day for pain Salt water gargles, throat lozenges or throat sprays as desired Antibiotic as directed--finished the medication If your symptoms persist, change or worsen significantly before you can contact your personal physician then please, without delay, go to the emergency department for further evaluation. Follow-up with PCP in 7-10 days or sooner if needed Patient Language: Tongan Prescriptions: New amoxicillin-pot clavulanate 875-125 mg tablet 1 tablet PO Q12H Qty: 20 0RF Rx Instructions: Take with food recommend taking probiotic while on this medication fluticasone propionate [Flonase Allergy Relief] 50 mcg/actuation spray,suspension 1 spray intranasal Q12H Qty: 16 0RF Rx Instructions: administer into each nostril No Action Ubrelvy 100 mg tablet Slynd 4 mg (28) tablet desvenlafaxine succinate [Pristiq] 50 mg tablet extended release 24 hr 100 mg PO DAILY famotidine 20 mg tablet 20 mg PO DAILY Qty: 90 3RF lisdexamfetamine [Vyvanse] 40 mg capsule 40 mg PO DAILY Follow-up/Referrals: Lisset Maravilla APRN [Primary Care Provider, Family Practice] Time of Disposition: 15:10 Quality Monica Coma Scale Eyes: Open Verbal: Oriented and Alert Motor: Follows Commands Monica Coma Total Score: 15
== END 2025-07-06 15:11 | disposition home or self-care (01) ==
PROVIDERS: Emergency Provider Registered Nurse; PCP Nurse Practitioner Family
DX: H66.91 Otitis media, unspecified, right ear (principal); Z87.891 Personal history of nicotine dependence; J45.909 Unspecified asthma, uncomplicated
CPT/HCPCS: 99213; G0463